=== PATIENT | female | born 1930 | race Caucasian/White ===

== ENCOUNTER → 2017-04-22 | Outpatient (CLI) | payer MEDICARE ==
[~2017-04-22] MED LIST: AML5T; AMLO10TA2 PO; APIX2.5T PO; ASCO-262 PO; CALC-233 PO; CALC625T29 PO; CHOL200059 PO; CLOP75TA69 PO; FRS325T; LUMIGAN; METO200T32 PO; MTP100TCR; NF-ESOM40C PO; TRUSOPT 2%
--- NOTE | 2017-04-22 15:16 | Diagnostic Imaging Report ---
INDICATION: Memory loss. TECHNIQUE: Routine non contrast-enhanced axial images were obtained from the skull base to the vertex. COMPARISON: 07/07/2008. FINDINGS: The ventricles and cortical sulci are diffusely prominent, compatible with age-related volume loss. There are confluent areas of abnormal, low attenuation in the periventricular white matter. This is consistent with chronic small vessel ischemic changes. There is no midline shift or mass-effect. No acute intra-axial hemorrhage is seen. There are no abnormal areas of increased or decreased density to suggest acute hemorrhage or edema. No extra-axial masses or collections are present. The bony calvarium is intact. The visualized paranasal sinuses are unremarkable. The mastoid air cells are clear. IMPRESSION: 1. No acute intracranial abnormality. No CT evidence of mass, acute infarct or intracranial hemorrhage. 2. Chronic small vessel ischemic changes in the deep white matter. Dictated by: Dictated on workstation # [id number]
== END ==
LOC: RAD 14:00
PROVIDERS: ATTEND Nurse Practitioner Family
DX: R41.3 Other amnesia (principal)
CPT/HCPCS: 70450

== ENCOUNTER 2018-01-03 11:05 | Observation (INO) | payer MEDICARE ==
[~2018-01-03] VITALS: Ht 152.4 cm; Wt 52.2 kg
[~2018-01-03 11:05] MED LIST changes: -METO200T32 PO; +METO200T48 PO
--- OUTSIDE RECORDS SUMMARY | 2018-01-03 11:13 | XMS REPORT | Continuity of Care Document ---
Author Author [facility] Organization [facility] Address Unknown Phone Unavailable Allergies Active Description Code Type Severity Reaction Onset Reported/Identified Relationship to Patient Clinical Status Yes isoflurane [id number] Drug Allergy Unknown N/A 04/01/2016 Medications There is no data. 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, BOTH EYES 04/02/2016 DK ROSS MD Ot I10 ESSENTIAL (PRIMARY) HYPERTENSION 04/02/2016 DK ROSS MD Ot I25.10 ATHSCL HEART DISEASE OF [place] CORONARY 04/02/2016 DK ROSS MD Ot I48.0 PAROXYSMAL ATRIAL FIBRILLATION 04/02/2016 DK ROSS MD Ot Z95.5 PRESENCE OF CORONARY ANGIOPLASTY IMPLANT 04/23/2016 YESIKA BOWIE MD Ot I48.2 CHRONIC ATRIAL FIBRILLATION 04/23/2016 YESIKA BOWIE MD Ot R53.1 WEAKNESS 04/23/2016 YESIKA BOWIE MD Ot Z74.2 NEED FOR ASSIST AT HOME NO HOUSE MEMB 04/23/2016 YESIKA BOWIE MD Ot Z79.02 SHELTER (CURRENT) USE OF ANTITHROMBOTI 07/21/2016 MIKALA GALLARDO Ot M54.5 LOW BACK PAIN 07/21/2016 MIKALA GALLARDO BOOT TRIMMER Ot M54.6 PAIN IN THORACIC SPINE 08/11/2016 MIKALA GALLARDO BOOT TRIMMER Ot M54.5 LOW BACK PAIN 08/11/2016 MIKALA GALLARDO BOOT TRIMMER Ot M54.6 PAIN IN THORACIC SPINE 04/22/2017 MIKALA GALLARDO BOOT TRIMMER Ot M54.5 LOW BACK PAIN 04/22/2017 MIKALA GALLARDO BOOT TRIMMER Ot M54.6 PAIN IN THORACIC SPINE 04/26/2017 MIKALA GALLARDO BOOT TRIMMER Ot R41.3 OTHER AMNESIA 04/26/2017 MIKALA GALLARDO BOOT TRIMMER Ot R41.3 OTHER AMNESIA 04/26/2017 MIKALA GALLARDO BOOT TRIMMER Ot R41.3 OTHER AMNESIA 05/16/2017 MIKALA GALLARDO BOOT TRIMMER Ot R41.3 OTHER AMNESIA Procedures There is no data. Results There is no data. Encounters ACCT No. Visit Date/Time Discharge Status Pt. Type Provider Facility Loc./Unit Complaint [id number] 04/22/2017 14:00:00 04/22/2017 23:59:59 CLS Outpatient SAMISIDDHARTHMONIK ALMANZA [facility] RAD MEMORY LOSS [id number] 07/20/2016 12:14:00 07/20/2016 23:59:59 CLS Outpatient SAMISIDDHARTHMONIK WHYTEP [facility] RAD LOW BACK PAIN, THORACIC BACK PAIN,FALL [id number] 03/30/2016 22:55:00 04/02/2016 08:48:00 DIS Inpatient CODY FARRELL, DK López [facility] 4TH CHEST PAIN,PAROXYSMAL A- FIB [id number] 03/14/2016 10:43:00 03/14/2016 13:55:00 DIS Emergency AZEB FARRELL, YESIKA Gallo [facility] ER BEE STING/DIZZINESS/ CONSTIPATION
--- NOTE | 2018-01-03 11:20 | ED Head Injury ---
General Stated Complaint: DIZZY/FALL History of Present Illness Date Seen by Provider: Jan 03, 2018 Time Seen by Provider: 11:15 Initial Comments Patient to the ER by [facility]. Patient called due to fall this morning at 5 AM. Patient reports following this morning while doing laundry in the basement. She is unsure why she fell, she denies any shortness of breath or palpitations prior to fall but reports losing consciousness to waking up to pain to the back of her head and has been dizzy ever since. She struck her left occiput and has a hematoma to this area. Patient reports she is taking. Occurred: this morning Severity: mild Location: occipital Method of Injury: fell Loss of Consciousness: brief (seconds) (patient reports that she lost consciousness prior to falling but is unsure how long she actually out.) Associated Systoms: Denies Symptoms Allergies and Home Medications Allergies Coded Allergies: isoflurane (Verified Allergy, Unknown, 04/01/16) Home Medications Alprazolam 0.25 Mg Tablet, 0.25 MG PO HS, (Reported) Alprazolam 0.25 Mg Tablet, 0.25 MG PO DAILY PRN for ANXIETY, (Reported) Amlodipine Besylate 10 Mg Tablet, 10 MG PO DAILY, (Reported) Apixaban 2.5 Mg Tablet, 2.5 MG PO BID, (Reported) Citalopram Hydrobromide 10 Mg Tablet, 10 MG PO DAILY, (Reported) Clopidogrel Bisulfate 75 Mg Tablet, 75 MG PO DAILY, (Reported) Dorzolamide HCl 10 Ml Drops, 1 DROP OU 0700,1900, (Reported) Latanoprost 2.5 Ml Drops, 1 DROP OU HS, (Reported) Metoprolol Succinate 200 Mg Tab.er.24h, 200 MG PO DAILY, (Reported) Polyethylene Glycol 3350 510 Gm Powder, 17 GM PO DAILY, (Reported) MIXES IN 1/2 CUP OF PRUNE JUICE Propylene Glycol/Peg 400 15 Ml Drops, 1 DROP OS 1000,1200,1400, (Reported) Patient Home Medication List Home Medication List Reviewed: Yes Constitutional: no symptoms reported, see HPI Eyes: No Symptoms Reported, See HPI Ears, Nose, Mouth, Throat: no symptoms reported, see HPI Respiratory: no symptoms reported, see HPI Cardiovascular: no symptoms reported, see HPI Gastrointestinal: no symptoms reported Genitourinary: no symptoms reported, see HPI Musculoskeletal: no symptoms reported, see HPI Skin: no symptoms reported, see HPI Psychiatric/Neurological: No Symptoms Reported, See HPI Endocrine: No Symptoms Reported, See HPI Hematologic/Lymphatic: No Symptoms Reported, See HPI Past Hglcmhq-Wagnqu-Naccxq Hx Seasonal Allergies Seasonal Allergies: No Surgeries Surgeries: Hysterectomy Cardiovascular Cardiac Disorders: Atrial Fibrillation, Coronary Artery Disease, Hypertension Reproductive System Hx Reproductive Disorders: No HEENT 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 Family Medical History Family Medial History: KIDNEY REMOVED 19 MOTHER MIGRAINES 19 MOTHER SKIN CANCER 19 FATHER Physical Exam Vital Signs Vital Signs - First Documented 01/03/18 11:05 Temp 97.2 Pulse 86 Resp 12 B/P (MAP) 145/94 (111) Pulse Ox 100 Capillary Refill : General Appearance: WD/WN, no apparent distress HEENT: PERRL/EOMI, normal ENT inspection Neck: non-tender, full range of motion Cardiovascular: normal peripheral pulses, regular rate, rhythm Respiratory: chest non-tender, lungs clear Gastrointestinal: normal bowel sounds, non tender Back: normal inspection Extremities: normal range of motion, non-tender Psychiatric: alert, oriented x 3 Crainal Nerves: normal hearing, normal speech Motor/Sensory: no motor deficit, no sensory deficit (right) Skin: normal color, warm/dry, ecchymosis (to left. Occiput ) Progress/Results/Core Measures Results/Orders Lab Results Laboratory Tests Test 01/03/18 11:15 01/03/18 13:40 Range/Units White Blood Count 12.5 H 4.3-11.0 10^3/uL Red Blood Count 4.36 4.35-5.85 10^6/uL Hemoglobin 14.0 11.5-16.0 G/DL Hematocrit 41 35-52 % Mean Corpuscular Volume 93 80-99 FL Mean Corpuscular Hemoglobin 32 25-34 PG Mean Corpuscular Hemoglobin Concent 34 32-36 G/DL Red Cell Distribution Width 12.8 10.0-14.5 % Platelet Count 259 130-400 10^3/uL Mean Platelet Volume 10.5 H 7.4-10.4 FL Neutrophils (%) (Auto) 75 42-75 % Lymphocytes (%) (Auto) 16 12-44 % Monocytes (%) (Auto) 9 0-12 % Eosinophils (%) (Auto) 0 0-10 % Basophils (%) (Auto) 0 0-10 % Neutrophils # (Auto) 9.4 H 1.8-7.8 X 10^3 Lymphocytes # (Auto) 1.9 1.0-4.0 X 10^3 Monocytes # (Auto) 1.1 H 0.0-1.0 X 10^3 Eosinophils # (Auto) 0.0 0.0-0.3 10^3/uL Basophils # (Auto) 0.0 0.0-0.1 10^3/uL Sodium Level 137 135-145 MMOL/L Potassium Level 3.7 3.6-5.0 MMOL/L Chloride Level 103 98-107 MMOL/L Carbon Dioxide Level 21 21-32 MMOL/L Anion Gap 13 5-14 MMOL/L Blood Urea Nitrogen 10 7-18 MG/DL Creatinine 0.75 0.60-1.30 MG/DL Estimat Glomerular Filtration Rate > 60 BUN/Creatinine Ratio 13 Glucose Level 137 H 70-105 MG/DL Calcium Level 9.6 8.5-10.1 MG/DL Total Bilirubin 0.6 0.1-1.0 MG/DL Aspartate Amino Transf (AST/SGOT) 56 H 5-34 U/L Alanine Aminotransferase (ALT/SGPT) 21 0-55 U/L Alkaline Phosphatase 62 40-136 U/L Total Protein 7.5 6.4-8.2 GM/DL Albumin 4.4 3.2-4.5 GM/DL Urine Color YELLOW Urine Clarity SLIGHTLY CLOUDY Urine pH 8 5-9 Urine Specific [place] 1.010 L 1.016-1.022 Urine Protein NEGATIVE NEGATIVE Urine Glucose (UA) NEGATIVE NEGATIVE Urine Ketones 1+ H NEGATIVE Urine Nitrite NEGATIVE NEGATIVE Urine Bilirubin NEGATIVE NEGATIVE Urine Urobilinogen NORMAL NORMAL MG/DL Urine Leukocyte Esterase 1+ H NEGATIVE Urine RBC (Auto) 1+ H NEGATIVE Urine RBC 2-5 H /HPF Urine WBC 0-2 /HPF Urine Crystals NONE /LPF Urine Bacteria TRACE /HPF Urine Casts NONE /LPF Urine Mucus NEGATIVE /LPF Urine Culture Indicated NO My Orders Orders - RICO MEJIA APRN Ct Head/Cervical Spine Wo (01/03/18 11:12) Cbc With Automated Diff (01/03/18 11:12) Comprehensive Metabolic Panel (01/03/18 11:12) Ua Culture If Indicated (01/03/18 11:12) Chest 1 View, Ap/Pa Only (01/03/18 11:12) Ekg Tracing (01/03/18 11:12) Continuous Ekg Monitoring (01/03/18 11:12) Saline Lock/Iv-Start (01/03/18 11:12) Ondansetron Injection (Zofran Injectio (01/03/18 12:45) Meclizine Tablet (Antivert Tablet) (01/03/18 13:30) Ekg Tracing (01/03/18 14:18) Promethazine Injection (Phenergan Injec (01/03/18 15:15) Medications Given in ED Current Medications Medications Dose Ordered Sig/Bandar Route Start Time Stop Time Status Last Admin Dose Admin Meclizine HCl 25 mg ONCE ONCE PO 01/03/18 13:30 01/03/18 13:31 DC 01/03/18 13:38 25 MG Ondansetron HCl 4 mg ONCE ONCE IVP 01/03/18 12:45 01/03/18 12:46 DC 01/03/18 12:47 4 MG Vital Signs/I&O Vital Sign - Last 12Hours 01/03/18 01/03/18 11:05 14:55 Temp 97.2 97.2 Pulse 86 72 Resp 12 12 B/P (MAP) 145/94 (111) 140/84 (111) Pulse Ox 100 100 Departure Communication (Admissions) Time/Spoke to Admitting Phy: 14:15 Communication Quite unsteady on her feet and requires assistance of 2 to keep from falling while walking. She does have some persistent nausea. Discussed with Dr. Husain. 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 Bit hesitant to send her home with gait instability. Discussed with Dr. Husain who agrees to admit observation status. She does have a history of paroxysmal A. fib which may have precipitated her syncopal event this morning Impression Impression: Primary Impression: Concussion Additional Impressions: Fall at home Dizziness Gait instability history of paroxysmal A. fib Disposition: ADMITTED INPATIENT Condition: Improved Admissions Decision to Admit Reason: Admit from ER (General) Decision to Admit/Date: Jan 03, 2018 Time/Decision to Admit Time: 14:15 Departure-Patient Inst. Referrals: CALLIE HUSAIN MD (PCP/Family) Primary Care Physician RICO MEJIA APRN 6, 2018 11:20
[2018-01-03 11:25] LABS: BASOPHILS % (AUTO) 0 % (0-10); EOSINOPHILS % (AUTO) 0 % (0-10); HEMATOCRIT 41 % (35-52); LYMPHOCYTES # (AUTO) 1.9 X 10^3 (1.0-4.0); LYMPHOCYTES % (AUTO) 16 % (12-44); MEAN CORPUSCULAR HEMOGLOBIN 32 PG (25-34); MEAN CORPUSCULAR HGB CONC 34 G/DL (32-36); MEAN CORPUSCULAR VOLUME 93 FL (80-99); MEAN PLATELET VOLUME 10.5 FL (7.4-10.4); MONOCYTES # (AUTO) 1.1 X 10^3 (0.0-1.0); MONOCYTES % (AUTO) 9 % (0-12); NEUTROPHILS # (AUTO) 9.4 X 10^3 (1.8-7.8); NEUTROPHILS % (AUTO) 75 % (42-75); PLATELET COUNT 259 10^3/uL (130-400); RED BLOOD COUNT 4.36 10^6/uL (4.35-5.85); RED CELL DISTRIBUTION WIDTH 12.8 % (10.0-14.5); WHITE BLOOD COUNT 12.5 10^3/uL (4.3-11.0)
--- NOTE | 2018-01-03 11:37 | Diagnostic Imaging Report ---
INDICATION: Dizziness. Syncope. COMPARISON: 03/30/2016. FINDINGS: A single frontal view of the chest demonstrates normal heart size and pulmonary vascularity. The lungs are hyperinflated but otherwise clear. No large pleural effusion or pneumothorax is seen. The visualized osseous structures show no acute abnormalities. IMPRESSION: 1. No acute cardiopulmonary process. 2. Background of COPD. Dictated by: Dictated on workstation # [id number]
[2018-01-03 11:45] LABS: ALANINE AMINOTRANSFERASE 21 U/L (0-55); ALBUMIN 4.4 GM/DL (3.2-4.5); ALKALINE PHOSPHATASE 62 U/L (40-136); BILIRUBIN,TOTAL 0.6 MG/DL (0.1-1.0); BUN/CREATININE RATIO 13; CALCIUM 9.6 MG/DL (8.5-10.1); CARBON DIOXIDE 21 MMOL/L (21-32); CHLORIDE 103 MMOL/L (98-107); CREATININE SERUM 0.75 MG/DL (0.60-1.30); GFR ESTIMATED > 60; GLUCOSE 137 MG/DL (70-105); POTASSIUM 3.7 MMOL/L (3.6-5.0); SODIUM 137 MMOL/L (135-145); TOTAL PROTEIN 7.5 GM/DL (6.4-8.2)
[2018-01-03] MEDS ORDERED: IOHEXOL 350 MG/ML 100 ML (OMNIPAQUE 350) VIAL IV ONE (12:00)
[2018-01-03] MEDS ORDERED: NS 250 ML (IVPB) BAG IV ONE (12:00)
[2018-01-03] MEDS ORDERED: ONDANSETRON 4 MG/2 ML (SDV) Z0FRAN ONE (12:40)
[2018-01-03] MEDS ORDERED: ONDANSETRON 4 MG/2 ML (SDV) Z0FRAN IVP ONE (12:45)
--- NOTE | 2018-01-03 13:17 | Diagnostic Imaging Report ---
PROCEDURE: CT head and CT cervical spine without contrast. TECHNIQUE: Multiple contiguous axial images were obtained through the brain and cervical spine without the use of intravenous contrast. Sagittal and coronal reformations through the cervical spine were then performed. INDICATION: Dizziness and fall. COMPARISON: Correlation is made with prior head CT from 04/22/2017. CT BRAIN: There is a large scalp hematoma in the left posterior parietal scalp. No underlying intracranial hemorrhage is seen. The ventricular size and sulcal pattern are appropriate for the patient's age. There is significant periventricular hypodensity noted consistent with senescent change. No midline shift is seen. The cisterns are patent. The visualized paranasal sinuses are clear. IMPRESSION: Large left posterior parietal scalp hematoma. No acute intracranial process is detected. CT CERVICAL SPINE: Curvature of the cervical spine is normal. There is minimal retrolisthesis of C5 on C6. There is significant multilevel degenerative disc disease with disc space narrowing and marginal spurring. The prevertebral tissues are within normal limits. The odontoid is intact. IMPRESSION: No acute bony abnormality is identified. Dictated by: Dictated on workstation # [id number]
[2018-01-03] MEDS ORDERED: MECLIZINE 25 MG (ANTIVERT) TAB PO ONE (13:30)
[2018-01-03 13:55] LABS: BILIRUBIN,URINE NEGATIVE (NEGATIVE); CLARITY,URINE SLIGHTLY CLOUDY; COLOR,URINE YELLOW; GLUCOSE, URINE (UA) NEGATIVE (NEGATIVE); KETONES,URINE 1+ (NEGATIVE); LEUKOCYTE ESTERASE ,URINE 1+ (NEGATIVE); NITRITE,URINE NEGATIVE (NEGATIVE); PH,URINE 8 (5-9); PROTEIN,URINE NEGATIVE (NEGATIVE); UROBILINOGEN,URINE NORMAL (NORMAL)
[2018-01-03 14:02] LABS: BACTERIA,URINE TRACE /HPF; WBC,URINE 0-2 /HPF
--- OUTSIDE RECORDS SUMMARY | 2018-01-03 14:44 | XMS REPORT | Continuity of Care Document ---
Author Author [facility] Organization [facility] Address Unknown Phone Unavailable Allergies Active Description Code Type Severity Reaction Onset Reported/Identified Relationship to Patient Clinical Status Yes isoflurane [id number] Drug Allergy Unknown N/A 04/01/2016 Medications There is no data. 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, BOTH EYES 04/02/2016 DK ROSS MD Ot I10 ESSENTIAL (PRIMARY) HYPERTENSION 04/02/2016 DK ROSS MD Ot I25.10 ATHSCL HEART DISEASE OF [place] CORONARY 04/02/2016 DK ROSS MD Ot I48.0 PAROXYSMAL ATRIAL FIBRILLATION 04/02/2016 DK ROSS MD Ot Z95.5 PRESENCE OF CORONARY ANGIOPLASTY IMPLANT 04/23/2016 YESIKA BOWIE MD Ot I48.2 CHRONIC ATRIAL FIBRILLATION 04/23/2016 YESIKA BOWIE MD Ot R53.1 WEAKNESS 04/23/2016 YESIKA BOWIE MD Ot Z74.2 NEED FOR ASSIST AT HOME NO HOUSE MEMB 04/23/2016 YESIKA BOWIE MD Ot Z79.02 NURSING HOME (CURRENT) USE OF ANTITHROMBOTI 07/21/2016 MIKALA GALLARDO Ot M54.5 LOW BACK PAIN 07/21/2016 MIKALA GALLARDO 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 Ot M54.6 PAIN IN THORACIC SPINE 08/11/2016 MIKALA GALLARDO 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 Ot M54.5 LOW BACK PAIN 08/11/2016 MIKALA GALLARDO 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 Ot M54.6 PAIN IN THORACIC SPINE 04/22/2017 MIKALA GALLARDO 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 Ot M54.5 LOW BACK PAIN 04/22/2017 MIKALA GALLARDO 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 Ot M54.6 PAIN IN THORACIC SPINE 04/26/2017 MIKALA GALLARDO 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 Ot R41.3 OTHER AMNESIA 04/26/2017 MIKALA GALLARDO 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 Ot R41.3 OTHER AMNESIA 04/26/2017 MIKALA GALLARDO 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 Ot R41.3 OTHER AMNESIA 05/16/2017 MIKALA GALLARDO 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 Ot R41.3 OTHER AMNESIA Procedures There is no data. Results Test Result Range Complete blood count (CBC) with automated white blood cell (WBC) differential - 01/03/18 11:15 Blood leukocytes automated count (number/volume) 12.5 10*3/uL 4.3-11.0 Blood erythrocytes automated count (number/volume) 4.36 10*6/uL 4.35-5.85 Venous blood hemoglobin measurement (mass/volume) 14.0 g/dL 11.5-16.0 Blood hematocrit (volume fraction) 41 % 35-52 Automated erythrocyte mean corpuscular volume 93 [foz_us] 80-99 Automated erythrocyte mean corpuscular hemoglobin (mass per erythrocyte) 32 pg 25-34 Automated erythrocyte mean corpuscular hemoglobin concentration measurement ( mass/volume) 34 g/dL 32-36 Automated erythrocyte distribution width ratio 12.8 % 10.0-14.5 Automated blood platelet count (count/volume) 259 10*3/uL 130-400 Automated blood platelet mean volume measurement 10.5 [foz_us] 7.4-10.4 Automated blood neutrophils/100 leukocytes 75 % 42-75 Automated blood lymphocytes/100 leukocytes 16 % 12-44 Blood monocytes/100 leukocytes 9 % 0-12 Automated blood eosinophils/100 leukocytes 0 % 0-10 Automated blood basophils/100 leukocytes 0 % 0-10 Blood neutrophils automated count (number/volume) 9.4 10*3 1.8-7.8 Blood lymphocytes automated count (number/volume) 1.9 10*3 1.0-4.0 Blood monocytes automated count (number/volume) 1.1 10*3 0.0-1.0 Automated eosinophil count 0.0 10*3/uL 0.0-0.3 Automated blood basophil count (count/volume) 0.0 10*3/uL 0.0-0.1 Comprehensive metabolic panel - 01/03/18 11:15 Serum or plasma sodium measurement (moles/volume) 137 mmol/L 135-145 Serum or plasma potassium measurement (moles/volume) 3.7 mmol/L 3.6-5.0 Serum or plasma chloride measurement (moles/volume) 103 mmol/L 98-107 Carbon dioxide 21 mmol/L 21-32 Serum or plasma anion gap determination (moles/volume) 13 mmol/L 5-14 Serum or plasma urea nitrogen measurement (mass/volume) 10 mg/dL 7-18 Serum or plasma creatinine measurement (mass/volume) 0.75 mg/dL 0.60-1.30 Serum or plasma urea nitrogen/creatinine mass ratio 13 NRG Serum or plasma creatinine measurement with calculation of estimated glomerular filtration rate > NRG Serum or plasma glucose measurement (mass/volume) 137 mg/dL 70-105 Serum or plasma calcium measurement (mass/volume) 9.6 mg/dL 8.5-10.1 Serum or plasma total bilirubin measurement (mass/volume) 0.6 mg/dL 0.1-1.0 Serum or plasma alkaline phosphatase measurement (enzymatic activity/volume) 62 U/L 40-136 Serum or plasma aspartate aminotransferase measurement (enzymatic activity/ volume) 56 U/L 5-34 Serum or plasma alanine aminotransferase measurement (enzymatic activity/volume ) 21 U/L 0-55 Serum or plasma protein measurement (mass/volume) 7.5 g/dL 6.4-8.2 Serum or plasma albumin measurement (mass/volume) 4.4 g/dL 3.2-4.5 Complete urinalysis with reflex to culture - 01/03/18 13:40 Urine color determination YELLOW NRG Urine clarity determination SLIGHTLY CLOUDY NRG Urine pH measurement by test strip 8 5-9 Specific gravity of urine by test strip 1.010 1.016- 1.022 Urine protein assay by test strip, semi-quantitative NEGATIVE NEGATIVE Urine glucose detection by automated test strip NEGATIVE NEGATIVE Erythrocytes detection in urine sediment by light microscopy 1+ NEGATIVE Urine ketones detection by automated test strip 1+ NEGATIVE Urine nitrite detection by test strip NEGATIVE NEGATIVE Urine total bilirubin detection by test strip NEGATIVE NEGATIVE Urine urobilinogen measurement by automated test strip (mass/volume) NORMAL NORMAL Urine leukocyte esterase detection by dipstick 1+ NEGATIVE Automated urine sediment erythrocyte count by microscopy (number/high power field) [HPF] NRG Automated urine sediment leukocyte count by microscopy (number/high power field ) [HPF] NRG Bacteria detection in urine sediment by light microscopy TRACE NRG Crystals detection in urine sediment by light microscopy NONE NRG Casts detection in urine sediment by light microscopy NONE NRG Mucus detection in urine sediment by light microscopy NEGATIVE NRG Complete urinalysis with reflex to culture NO NRG Encounters ACCT No. Visit Date/Time Discharge Status Pt. Type Provider Facility Loc./Unit Complaint [id number] 04/22/2017 14:00:00 04/22/2017 23:59:59 CLS Outpatient MIKALA GALLARDO [facility] RAD MEMORY LOSS [id number] 07/20/2016 12:14:00 07/20/2016 23:59:59 CLS Outpatient MIKALA GALLARDO [facility] RAD LOW BACK PAIN, THORACIC BACK PAIN,FALL [id number] 03/30/2016 22:55:00 04/02/2016 08:48:00 DIS Inpatient CODY FARRELL, DK López [facility] 4TH CHEST PAIN,PAROXYSMAL A- FIB [id number] 03/14/2016 10:43:00 03/14/2016 13:55:00 DIS Emergency AZEB FARRELL, YESIKA Gallo [facility] ER BEE STING/DIZZINESS/ CONSTIPATION [id number] 01/03/2018 11:09:00 ACT Emergency RICO MEJIA APRN [facility] ER DIZZY/FALL
[2018-01-03] MEDS ORDERED: PROMETHAZINE INJ 25 MG/ML (PHENERGAN) AMP ONE (15:05)
[2018-01-03] MEDS ORDERED: PROMETHAZINE INJ 25 MG/ML (PHENERGAN) AMP IVP ONE (15:15)
[2018-01-03 16:00] VITALS: BP_SYST 137; BP_DIAS 63; BP_DIAS 64
[2018-01-03] MEDS ORDERED: METO200T48 PO (16:08)
[2018-01-03] MEDS ORDERED: CLOP75TA28 PO (16:08)
[2018-01-03] MEDS ORDERED: CITA10TA7 PO (16:08)
[2018-01-03] MEDS ORDERED: LATA2.5D5 OU (16:08)
[2018-01-03] MEDS ORDERED: [UNRECOGNIZED DRUG - CODE] PO (16:12)
[2018-01-03] MEDS ORDERED: PROP15DR OS (16:12)
[2018-01-03] MEDS ORDERED: APIX2.5T PO (16:12)
[2018-01-03] MEDS ORDERED: ALPR0.254 PO ×2 (16:12)
[2018-01-03] MEDS ORDERED: DORZ10DR2 OU (16:12)
--- NOTE | 2018-01-03 16:17 | Physical Therapy Evaluation ---
PT Evaluation-General Medical Diagnosis Admission Date Jan 03, 2018 at 14:15 Medical Diagnosis: gait instability Onset Date: Jan 03, 2018 Therapy Diagnosis Therapy Diagnosis: impaired mobility, balance, endurance Height/Weight Height (Feet): 5 Height (Inches): 0 Weight (Pounds): 115 Weight (Ounces): 1.0 Precautions Precautions/Isolations: Fall Prevention, Standard Precautions Referral Physician: Blanca Husain MD Reason for Referral: Evaluation/Treatment Medical History Pertinent Medical History: Atrial Fib, CAD, HTN Additional Medical History CAHUILLA, hysterectomy Current History patient fell at home and hit the back of her head Reviewed History: Yes Social History Home: Single Level Current Living Status: Spouse 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 She states her cannot assist her. She states she was not using any assistive device to ambulate. Prior/Core FIM Prior Level of Function Functional [place] Measure 0=Not Assessed/NA 4=Minimal Assistance 1=Total Assistance 5=Supervision or Setup 2=Maximal Assistance 6=Modified [place] 3=Moderate Assistance 7=Complete [place] Bed Mobility: 7 Transfers (B,C,W/C) (FIM): 7 Gait: 7 PT Evaluation-Current Subjective Patient in bed pre tx, agrees to PT, she states she doesn't have any pain but does have dizziness when she gets up. She states she would like to get up and get into a chair. Pt/Family Goals "to have her dizziness go away" Objective Patient Orientation: Person, Place, Situation ROM/Strength ROM Lower Extremities WNL Strength Lower Extremities 4/5 gross bilateral Neuromuscular (Tone, Coordination, Reflexes) Patient has a non-symmetrical smile but does not appear to be neurological, no complaints of numbness on face. No tongue deviation. Sensory Vision: Hearing: Impaired Sensation Right Lower Extremit: Intact Sensation Left Lower Extremity: Intact Transfers Functional [place] Measure 0=Not Assessed/NA 4=Minimal Assistance 1=Total Assistance 5=Supervision or Setup 2=Maximal Assistance 6=Modified [place] 3=Moderate Assistance 7=Complete [place] Transfers (B, C, W/C) (FIM): 4 Scootin Rollin Supine to/from Sit: 5 Sit to/from Stand: 4 bed t/f WC(FIM only if WC use): 4 Patient had difficulty scooting to the edge of the bed but was eventually able to do it without assist. CGA for sit to stand and to go to the chair. Patient sat in recliner. Nurse aware. Gait Mode of Locomotion: Walk Anticipated Mode of Locomotion: Walk Gait (FIM): 1 Distance: 5' Gait Level of Assist: 4 Gait Persons Needed: 1 Gait Assistive Device: Handheld Assist Comments/Gait Description Patient unsteady but no LOB, she did state that she has dizzy right before she sat down. Balance Sitting Static: Normal Sitting Dynamic: Normal Standing Static: Poor Standing Dynamic: Poor Assessment/Needs Patient has impaired mobility, endurance, balance. She is at risk for a fall. Rehab Potential: Fair PT Short Term Goals Short Term Goals Time Frame: Jan 10, 2018 Transfers (B,C,W/C) (FIM): 5 Gait (FIM): 2 Gait Distance Comment: 50' Gait Level of Assist: 4 Gait Assistive Device: FWW, Handheld Assist PT Plan Problem List Problem List: Activity Tolerance, Functional Strength, Safety, Balance, Gait, Transfer, Bed Mobility Treatment/Plan Treatment Plan: Continue Plan of Care Treatment Plan: Bed Mobility, Education, Functional Activity Terrie, Functional Strength, Gait, Safety, Therapeutic Exercise, Transfers Treatment Duration: Jan 10, 2018 Frequency: 6 times per week Estimated Hrs Per Day: .25 hour per day (15-30') Patient and/or Family Agrees t: Yes Safety Risks/Education Patient Education: Gait Training, Transfer Techniques, Correct Positioning, Safety Issues Teaching Recipient: Patient Teaching Methods: Demonstration, Discussion Response to Teaching: Reinforcement Needed Discharge Recommendations Plan Patient will perform bed mobility and transfer training, balance and endurance training, functional strengthening, stair training, gait training, and education , to improve functional mobility and independence at home. Therapy D/C Recommendations: Home w/ Family Support Time/GCodes Time In: 1555 Time Out: 1610 Total Billed Treatment Time: 15 Total Billed Treatment 1 visit EVM 15' G Codes Necessary: Yes PT/OT Therapy GCodes Therapy Functional Limitation: Physical Therapy Test(s)/Tool used to determine: Level of Assistance Scale Functional Limitation-Current Charge Code: MOBCUR Modifier: CJ Functional Limitation-Goal Charge Code: MOBGOAL Modifier: BRENDEN GARCIA PT Jan 03, 2018 16:17
[2018-01-03] MEDS ORDERED: ONDANSETRON 4 MG/2 ML (SDV) Z0FRAN IV PRN (17:15)
[2018-01-03] MEDS ORDERED: MECLIZINE 25 MG (ANTIVERT) TAB PO PRN (17:15)
[2018-01-03] MEDS ORDERED: ACETAMINOPHEN 325 MG TABLET/CAPLET (TYLENOL) PO PRN (17:30)
[2018-01-03] MEDS ORDERED: CATHETER FLUSH 10 ML SYR IV PRN (17:30)
[2018-01-03] MEDS ORDERED: INFLUENZA TRIvalent 2017-2018 0.5 ML/45 MCG SYR IM ONE (17:30)
[2018-01-03 20:00] VITALS: BP 125/60
--- NOTE | 2018-01-03 20:06 | History & Physicial ---
History of Present Illness History of Present Illness Reason for visit/HPI PT IS AN 87 Y/O FEMALE WHO IS KNOWN TO ME FROM CLINIC. SHE PRESENTED TO THE EMERGENCY DEPARTMENT AFTER FALLING AT HOME. SHE IS BLIND AND HER IS BLIND AND HE WAS UNABLE TO HELP HER. SHE STATES THAT SHE GOT DIZZY WHEN SHE WAS BENDING OVER TO DRINKING WATER TECHNICIAN LAUNDRY FROM THE BASKET. Date of Admission Jan 03, 2018 at 14:15 Time Seen by Provider: 20:00 I consulted on this patient on 01/03/18 20:05 Attending Physician Callie Husain MD Admitting Physician Callie Husain MD Consult Allergies and Home Medications Allergies Coded Allergies: isoflurane (Verified Allergy, Unknown, 04/01/16) Home Medications Alprazolam 0.25 Mg Tablet, 0.25 MG PO HS, (Reported) Alprazolam 0.25 Mg Tablet, 0.25 MG PO DAILY PRN for ANXIETY, (Reported) Amlodipine Besylate 10 Mg Tablet, 10 MG PO DAILY, (Reported) Apixaban 2.5 Mg Tablet, 2.5 MG PO BID, (Reported) Azithromycin 250 Mg Tablet, 250 MG PO DAILY Prescribed by: CALLIE HUSAIN on 01/09/18 1205 Cefdinir 300 Mg Capsule, 300 MG PO BID Prescribed by: CALLIE HUSAIN on 01/09/18 1205 Citalopram Hydrobromide 10 Mg Tablet, 10 MG PO DAILY, (Reported) Clopidogrel Bisulfate 75 Mg Tablet, 75 MG PO DAILY, (Reported) Dorzolamide HCl 10 Ml Drops, 1 DROP OU 0700,1900, (Reported) Latanoprost 2.5 Ml Drops, 1 DROP OU HS, (Reported) Metoprolol Succinate 200 Mg Tab.er.24h, 200 MG PO DAILY, (Reported) Polyethylene Glycol 3350 510 Gm Powder, 17 GM PO DAILY, (Reported) MIXES IN 1/2 CUP OF PRUNE JUICE Propylene Glycol/Peg 400 15 Ml Drops, 1 DROP OS 1000,1200,1400, (Reported) Patient Home Medication List Home Medication List Reviewed: Yes Past Awzkcls-Gadmvf-Rinecg Hx Patient Social History Marrital Status: Living Status: LIVES AT HOME WITH BLIND SPOUSE Employed/Student: retired Alcohol Use: Occasionally Uses Recreational Drug Use: No Smoking Status: Never a Smoker Physical Abuse Screen: No Sexual Abuse: No Recent Foreign Travel: No Contact w/other who traveled: No Recent Hopitalizations: No (PARTIAL HYSTERECTOMY, TONSILECTOMY, FUNDOPLICATION , CARPAL TUNNEL ) Recent Infectious Disease Expo: No Seasonal Allergies Seasonal Allergies: No Surgeries Yes (COLONOSCOPY, EGD, HEART CATH.,) Hysterectomy Respiratory No Cardiovascular Yes Atrial Fibrillation, Coronary Artery Disease, Hypertension Neurological No Reproductive System Hx Reproductive Disorders: No Gastrointestinal No Endocrine History of Endocrine Disorders: No HEENT 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 Cancer No Psychosocial History of Psychiatric Problem: No Integumentary History of Skin or Integumenta: No Blood Transfusions History of Blood Disorders: No Reviewed Nursing Assessment Reviewed/Agree w Nursing PMH: Yes Family Medical History Significant Family History: Cancer Family Hx: KIDNEY REMOVED 19 MOTHER MIGRAINES 19 MOTHER SKIN CANCER 19 FATHER Constitutional: No chills, No diaphoresis, dizziness (ITTENT), No fever, No malaise EENTM: vision loss, No hoarseness, No mouth pain Respiratory: No cough, No dyspnea on exertion Cardiovascular: No chest pain Gastrointestinal: No abdominal pain, No constipation Genitourinary: no symptoms reported Musculoskeletal: muscle weakness Skin: no symptoms reported Psychiatric/Neurological: Anxiety All Other Systems Reviewed Negative Unless Noted: Yes Physical Exam Vital Signs Vital Signs - First Documented 01/03/18 01/03/18 11:05 16:00 Temp 97.2 Pulse 86 Resp 12 B/P (MAP) 145/94 (111) Pulse Ox 100 O2 Delivery Room Air Capillary Refill : Less Than 3 Seconds General Appearance: No Apparent Distress, WD/WN HEENT: Pharynx Normal Neck: Full Range of Motion, Supple Respiratory: Chest Non Tender, Lungs Clear, Normal Breath Sounds, No Accessory Muscle Use Cardiovascular: Regular Rate, Rhythm Gastrointestinal: Normal Bowel Sounds, Non Tender, Soft Rectal: Deferred Extremity: Normal Capillary Refill, No Pedal Edema Neurologic/Psychiatric: Alert, Oriented x3, Normal Mood/Affect Skin: Warm/Dry Lymphatic: No Adenopathy Assessment/Plan Assessment and Plan FALL AT HOME DIZZINESS BLINDNESS CONSTIPATION ANXIETY HYPERTENSION FALL AT HOME DUE TO DIZZINESS - SUSPECT ORTHOSTASIS - WILL INITIATE PHYSICAL THERAPY. BLINDNESS - DISCUSSED WITH THE PT - IT WOULD BE BEST FOR THE PT TO GO TO ASSISTED LIVING OR THE [facility] - SHE STATES THAT SHE IS NOT INTERESTED AND THAT SHE TAKES CARE OF HERSELF AND HER . CONSTIPATION - RESUME MIRALAX ANXIETY - RESUME HOME MEDICATIONS. HYPERTENSION - RESUME HOME MEDICATIONS Problems: Admission Diagnosis FALL AT HOME DIZZINESS BLINDNESS CONSTIPATION ANXIETY HYPERTENSION Admission Status: Observation Clinical Quality Measures DVT/VTE Risk/Contraindication: Risk Factor Score Per Nursin RFS Level Per Nursing on Admit: 2=Moderate CALLIE HUSAIN MD Jan 03, 2018 20:06
[2018-01-03] MEDS ORDERED: ALPRAZolam 0.25 MG (XANAX) TAB PO PRN (20:15)
[2018-01-03] MEDS ORDERED: PATIENT MAY USE OWN MEDS, ALL MC SCH (20:15)
[2018-01-03] MEDS ORDERED: ALPRAZolam 0.25 MG (XANAX) TAB PO SCH (21:00)
[2018-01-03] MEDS ORDERED: POLYETHYLENE GLYCOL 17 GM (MIRALAX) PACK PO SCH (21:00)
[2018-01-03] MEDS ORDERED: LATANOPROST 0.005% (XALATAN) OPHTH SOLN 2.5 ML OU SCH (21:00)
[2018-01-03] MEDS: DORZOLAMIDE 2% 10 ML BTL (TRUSOPT) OU SCH (21:37)
[2018-01-03] MEDS: APIXABAN 2.5 MG (ELIQUIS) TABLET PO SCH (21:39)
[2018-01-03] MEDS: CATHETER FLUSH 10 ML SYR IV SCH (22:03)
[2018-01-04] VITALS: BP 132/58
[2018-01-04 04:00] VITALS: BP 123/56
[2018-01-04] MEDS: CATHETER FLUSH 10 ML SYR IV SCH (06:08)
[2018-01-04 06:56] LABS: HEMOGLOBIN 14.4 G/DL (11.5-16.0); MEAN PLATELET VOLUME 10.4 FL (7.4-10.4); RED BLOOD COUNT 4.48 10^6/uL (4.35-5.85); RED CELL DISTRIBUTION WIDTH 13.1 % (10.0-14.5); WHITE BLOOD COUNT 7.3 10^3/uL (4.3-11.0)
[2018-01-04] MEDS: DORZOLAMIDE 2% 10 ML BTL (TRUSOPT) OU SCH (06:59)
[2018-01-04 07:20] LABS: ALANINE AMINOTRANSFERASE 22 U/L (0-55); ALBUMIN 4.5 GM/DL (3.2-4.5); ALKALINE PHOSPHATASE 66 U/L (40-136); BILIRUBIN,TOTAL 0.9 MG/DL (0.1-1.0); BUN/CREATININE RATIO 12; CARBON DIOXIDE 24 MMOL/L (21-32); CHLORIDE 103 MMOL/L (98-107); CREATININE SERUM 0.85 MG/DL (0.60-1.30); GFR ESTIMATED > 60; GLUCOSE 99 MG/DL (70-105); POTASSIUM 3.5 MMOL/L (3.6-5.0); SODIUM 138 MMOL/L (135-145); TOTAL PROTEIN 7.7 GM/DL (6.4-8.2)
[2018-01-04 08:00] VITALS: BP 129/76
[2018-01-04] MEDS: APIXABAN 2.5 MG (ELIQUIS) TABLET PO SCH (08:56)
[2018-01-04] MEDS ORDERED: Metoprolol Succinate 200 MG PO SCH (09:00)
[2018-01-04] MEDS ORDERED: CLOPIDOGREL 75 MG (PLAVIX) TABLET PO SCH (09:00)
[2018-01-04] MEDS ORDERED: amLODIPine 10 MG (NORVASC) TAB PO SCH (09:00)
--- NOTE | 2018-01-04 09:44 | D/C HH Face to Face Order ---
D/C Face to Face Orders Instructions for Patient Patient Instructions/FollowUp: FOLLOW UP WITH [facility] IN [place] WEEK FROM [place] Physician to follow Patient: LORAINE Discharge Diet for Home: Regular Diet Patient Data-Allergies,Ht & Wt Patient Allergies: Coded Allergies: isoflurane (Verified Allergy, Unknown, 04/01/16) Height (Feet): 5 Height (Inches): 0.00 Weight (Pounds): 115 Weight (Ounces): 0.0 Home Health Need/Face to Face Date of Face to Face: Jan 04, 2018 Clinical Findings: Generalized weakness and fatigue, Instability, Muscle weakness, Other-list in note (BLIND) I have seen Pt [id number]: Yes Discharged To: Home Diagnosis/Conditions: BLINDNESS, FALLING AT HOME, AFIB, HTN, GENERALIZED WEAKNESS Problems/Diagnosis/Condition: Patient is Homebound due to: Taylor fall risk due to instabilty, Muscle weakness Homebound Status Due to the above stated illness, injury or surgical procedure (medical condition or diagnosis) and associated clinical findings, the patient is homebound because of his/her inability to leave home except with aid of a supportive device and/or person AND leaving the home requires a considerable and taxing effort or is medically contraindicated. Pt req the following assistanc: Cane Home Health Nursing Orders Home Health Services Order: Nursing Services, Ict Business Development Manager-Evaluate & Treat, Physical Therapy-Evaluate & Treat Home Health Infusion Therapy Line Start Date: Jan 03, 2018 Line Type: Saline Lock Site Location: Antecubital Therapy Orders Therapy Orders: Physical Therapy, PT to assess for OT Therapy Specific Orders: Eval assistive deivces, Teach enviro modifications/ safety, Gait training, Restore ROM Certify Stmt I certify that this patient is under my care and that I, a nurse practitioner or a physician; a promotional advertising assistant working with me, had a face to face encounter that - meets the physician face to face encounter requirements with this patient as dated. Medication List: Active Scripts Active Reported Systane 0.3-0.4% Eye Drops (Propylene Glycol/Peg 400) 15 Ml Drops 1 Drop OS 1000 ,1200,1400 Gentlelax (Polyethylene Glycol 3350) 510 Gm Powder 17 Gm PO DAILY MIXES IN 1/2 CUP OF PRUNE JUICE Eliquis (Apixaban) 2.5 Mg Tablet 2.5 Mg PO BID Alprazolam 0.25 Mg Tablet 0.25 Mg PO DAILY PRN Alprazolam 0.25 Mg Tablet 0.25 Mg PO HS Dorzolamide HCl 10 Ml Drops 1 Drop OU 0700,1900 Latanoprost 2.5 Ml Drops 1 Drop OU HS Metoprolol Succinate 200 Mg Tab.er.24h 200 Mg PO DAILY Citalopram HBr (Citalopram Hydrobromide) 10 Mg Tablet 10 Mg PO DAILY Clopidogrel (Clopidogrel Bisulfate) 75 Mg Tablet 75 Mg PO DAILY Amlodipine Besylate 10 Mg Tablet 10 Mg PO DAILY Lab results: Laboratory Tests Test 01/03/18 11:15 01/03/18 13:40 01/04/18 06:38 Range/Units White Blood Count 12.5 H 7.3 4.3-11.0 10^3/uL Red Blood Count 4.36 4.48 4.35-5.85 10^6/uL Hemoglobin 14.0 14.4 11.5-16.0 G/DL Hematocrit 41 43 35-52 % Mean Corpuscular Volume 93 95 80-99 FL Mean Corpuscular Hemoglobin 32 32 25-34 PG Mean Corpuscular Hemoglobin Concent 34 34 32-36 G/DL Red Cell Distribution Width 12.8 13.1 10.0-14.5 % Platelet Count 259 251 130-400 10^3/uL Mean Platelet Volume 10.5 H 10.4 7.4-10.4 FL Neutrophils (%) (Auto) 75 42-75 % Lymphocytes (%) (Auto) 16 12-44 % Monocytes (%) (Auto) 9 0-12 % Eosinophils (%) (Auto) 0 0-10 % Basophils (%) (Auto) 0 0-10 % Neutrophils # (Auto) 9.4 H 1.8-7.8 X 10^3 Lymphocytes # (Auto) 1.9 1.0-4.0 X 10^3 Monocytes # (Auto) 1.1 H 0.0-1.0 X 10^3 Eosinophils # (Auto) 0.0 0.0-0.3 10^3/uL Basophils # (Auto) 0.0 0.0-0.1 10^3/uL Sodium Level 137 138 135-145 MMOL/L Potassium Level 3.7 3.5 L 3.6-5.0 MMOL/L Chloride Level 103 103 98-107 MMOL/L Carbon Dioxide Level 21 24 21-32 MMOL/L Anion Gap 13 11 5-14 MMOL/L Blood Urea Nitrogen 10 10 7-18 MG/DL Creatinine 0.75 0.85 0.60-1.30 MG/DL Estimat Glomerular Filtration Rate > 60 > 60 BUN/Creatinine Ratio 13 12 Glucose Level 137 H 99 70-105 MG/DL Calcium Level 9.6 10.0 8.5-10.1 MG/DL Total Bilirubin 0.6 0.9 0.1-1.0 MG/DL Aspartate Amino Transf (AST/SGOT) 56 H 54 H 5-34 U/L Alanine Aminotransferase (ALT/SGPT) 21 22 0-55 U/L Alkaline Phosphatase 62 66 40-136 U/L Total Protein 7.5 7.7 6.4-8.2 GM/DL Albumin 4.4 4.5 3.2-4.5 GM/DL Urine Color YELLOW Urine Clarity SLIGHTLY CLOUDY Urine pH 8 5-9 Urine Specific [place] 1.010 L 1.016-1.022 Urine Protein NEGATIVE NEGATIVE Urine Glucose (UA) NEGATIVE NEGATIVE Urine Ketones 1+ H NEGATIVE Urine Nitrite NEGATIVE NEGATIVE Urine Bilirubin NEGATIVE NEGATIVE Urine Urobilinogen NORMAL NORMAL MG/DL Urine Leukocyte Esterase 1+ H NEGATIVE Urine RBC (Auto) 1+ H NEGATIVE Urine RBC 2-5 H /HPF Urine WBC 0-2 /HPF Urine Crystals NONE /LPF Urine Bacteria TRACE /HPF Urine Casts NONE /LPF Urine Mucus NEGATIVE /LPF Urine Culture Indicated NO Thyroid Stimulating Hormone (TSH) 1.41 0.35-4.94 UIU/ML My orders: Orders - CALLIE BARON MD Promethazine Injection (Phenergan Injec (01/03/18 15:05) General/Regular (01/03/18 Lunch) Intake & Output-Accurate (Ord) (01/03/18 15:33) Up With Assistance As Tolerate (01/03/18 15:33) Code/Resuscitation (01/03/18 15:33) Patient/Family Fall-Prevention .on admission (01/03/18 15:38) Physical Therapy [place]der (01/03/18 15:38) Patient Visit (01/03/18 ) Pt Eval Moderate Complexity (01/03/18 ) Pt Mobility Current Status (01/03/18 ) Pt Mobility Goal Status (01/03/18 ) Ambulate TID (01/03/18 16:43) Sequential Compression Device 08,20 (01/03/18 16:43) Dvt/Vte Risk - Notifiy Physici 08 (01/03/18 16:43) Ondansetron Injection (Zofran Injectio (01/03/18 17:15) Meclizine Tablet (Antivert Tablet) (01/03/18 17:15) Acetaminophen Tablet/Caplet (Tylenol T (01/03/18 17:30) Sodium Chloride Flush (Catheter Flush Sy (01/03/18 22:00) Sodium Chloride Flush (Catheter Flush Sy (01/03/18 17:30) Influenza Trivalent 3033-4937 (Afluria (01/03/18 17:30) Alprazolam Tablet (Xanax Tablet) (01/03/18 20:15) Alprazolam Tablet (Xanax Tablet) (01/03/18 21:00) Amlodipine Tablet (Norvasc Tablet) (01/04/18 09:00) Apixaban Tablet (Eliquis Tablet) (01/03/18 21:00) Citalopram Tablet (Celexa Tablet) (01/04/18 09:00) Clopidogrel Tablet (Plavix Tablet) (01/04/18 09:00) Dorzolamide 2% Ophthalmic Soln (Trusopt (01/03/18 20:15) Latanoprost 0.005% Ophth Soln (Xalatan 0 (01/03/18 21:00) (Nf) Metoprolol Succinate (01/04/18 09:00) Polyethylene Glycol Powder Pkt (Miralax (01/03/18 21:00) Patient May Use Own Meds, All (Patient M (01/03/18 20:15) Cbc No Diff (01/04/18 05:00) Comprehensive Metabolic Panel (01/04/18 05:00) Thyroid Stimulating Hormone (01/04/18 05:00) Admission Order(Inpt,Obs,Sdc) (01/03/18 20:06) Iv/Invasive Line Insertion .on IV start (01/03/18 20:06) Activity (01/03/18 ) Intake & Output 06,14,22 (01/03/18 20:06) Vital Signs: Every 4 Hours (Or (01/03/18 20:06) Sequential Compression Device 08,20 (01/03/18 20:06) Initiate Admission Nursing Pro .admission (01/03/18 20:06) Latanoprost 0.005% Ophth Soln (Xalatan 0 (01/04/18 21:00) Social Service (01/04/18 08:38) Carboxymethylcell Ophth Soln (Refresh Pl (01/04/18 10:00) Attending Discharge (01/04/18 09:41) D/C With Home Health Services (01/04/18 09:41) CALLIE BARON MD Jan 04, 2018 09:44
--- NOTE | 2018-01-04 09:45 | Discharge Summary ---
Diagnosis/Chief Complaint Date of Admission Jan 03, 2018 at 14:15 Date of Discharge Discharge Date: Jan 04, 2018 Discharge Time: 1100 Discharge Summary Discharge Physical Examination Allergies: Coded Allergies: isoflurane (Verified Allergy, Unknown, 04/01/16) Vitals & I&Os Vital Signs Date Time Temp Pulse Resp B/P (MAP) Pulse Ox O2 Delivery O2 Flow Rate FiO2 01/04/18 04:00 98.1 74 16 123/56 (78) 98 Room Air Hospital Course Pending Labs Laboratory Tests 01/04/18 06:38: White Blood Count 7.3, Red Blood Count 4.48, Hemoglobin 14.4, Hematocrit 43, Mean Corpuscular Volume 95, Mean Corpuscular Hemoglobin 32, Mean Corpuscular Hemoglobin Concent 34, Red Cell Distribution Width 13.1, Platelet Count 251, Mean Platelet Volume 10.4, Sodium Level 138, Potassium Level 3.5, Chloride Level 103, Carbon Dioxide Level 24, Anion Gap 11, Blood Urea Nitrogen 10, Creatinine 0.85, Estimat Glomerular Filtration Rate > 60, BUN/Creatinine Ratio 12, Glucose Level 99, Calcium Level 10.0, Total Bilirubin 0.9, Aspartate Amino Transf (AST/SGOT) 54, Alanine Aminotransferase (ALT/SGPT) 22, Alkaline Phosphatase 66, Total Protein 7.7, Albumin 4.5, Thyroid Stimulating Hormone (TSH ) 1.41 Discharge Instructions to patient/family Please see electronic discharge instructions given to patient. Discharge Medications Reviewed and agree with Discharge Medication list on patient's Discharge Instruction sheet Clinical Quality Measures DVT/VTE Risk/Contraindication: Risk Factor Score Per Nursin RFS Level Per Nursing on Admit: 2=Moderate CALLIE BARON MD Jan 04, 2018 09:45
[2018-01-04] MEDS ORDERED: ARTIFICAL TEARS 0.4 ML UNIT DOSE (REFRESH PLUS) OP SCH (10:00)
--- NOTE | 2018-01-04 10:11 | Physical Therapy Daily Note ---
PT Daily Note-Current Subjective Patient is very agreeable to participate with PT. Pain Numeric Pain Scale: 0-No Pain Location: No Pain Reported Mental Status Patient Orientation: Normal For Age Transfers Functional [place] Measure 0=Not Assessed/NA 4=Minimal Assistance 1=Total Assistance 5=Supervision or Setup 2=Maximal Assistance 6=Modified [place] 3=Moderate Assistance 7=Complete IndependenceIRFPAI Quality Coding Scale 6 Independent with activity with or without an assistive device 5 Patient requires set up or clean up by helper. Patient completes activity by themselves 4 Supervision or touching assist (CGA). [place] provide cues , steadying assist 3 The helper provides less than half the effort to complete the activity 2 The helper provides more than half the effort to complete the activity 1 Dependent. The helper does all the effort to complete an activity 7 Patient refused to complete or attempt activity 9 The patient did not perform the activity before the current illness or injury 88 Not attempted due to Medical conditions or safety concerns Transfers (B, C, W/C) (FIM): 6 Scootin Rollin Supine to/from Sit: 6 Sit to/from Stand: 6 Bed to/from Chair: 6 Gait Training Gait (FIM): 5 Distance (FIM): 3=150 ft Distance: 400' Gait Level of Assist: 5 Gait Assistive Device: None PT had patient ambulate with FWW and patient requested to not use it. From a PT standpoint, patient would benefit from FWW use at home for safety, however, patient declined this. SW/RN present to witness. Patient presents with a shuffle gait sequence. Stair Training Stair Training: Handrails/: 2 handrails Stairs (FIM): 5 #of Steps: 4 Stairs: Pattern: Step to Level of Assist: 5 Assessment Patient to dismiss to home with home health intervention. PT recommends FWW for ambulation at home for safety. Patient declined this intervention. PT Short Term Goals Short Term Goals Time Frame: Jan 10, 2018 Transfers (B,C,W/C) (FIM): 5 Gait (FIM): 2 Gait Distance Comment: 50' Gait Level of Assist: 4 Gait Assistive Device: FWW, Handheld Assist PT Plan Treatment/Plan Treatment Plan: Discontinue PT, goals met Treatment Plan: Bed Mobility, Education, Functional Activity Terrie, Functional Strength, Gait, Safety, Therapeutic Exercise, Transfers Treatment Duration: Jan 10, 2018 Frequency: 6 times per week Estimated Hrs Per Day: .25 hour per day (15-30') Patient and/or Family Agrees t: Yes Time/GCodes Time In: 941 Time Out: 957 Total Billed Treatment Time: 16 Total Billed Treatment 1 visit FA 16 min PT/OT Therapy GCodes Therapy Functional Limitation: Physical Therapy Test(s)/Tool used to determine: Level of Assistance Scale Functional Limitation-Current Charge Code: MOBCUR Modifier: CI Functional Limitation-Goal Charge Code: DARLENE Modifier: CI Functional Limitation-D/C Charge Codes: MOBDC Modifier: CI PARK SHANE PT Jan 04, 2018 10:11
[2018-01-04 12:53] VITALS: BP 129/76
[2018-01-04] MEDS ORDERED: LATANOPROST 0.005% (XALATAN) OPHTH SOLN 2.5 ML OU SCH (21:00)
== END 2018-01-04 09:41 | disposition home health service (06) ==
LOC: EDUNIT# 11:08 → ER 11:09 → UNDOADMOB 14:15 → 4TH 14:15 → UNDODISOB 01-04 11:35
PROVIDERS: ADMIT Family Medicine; ATTEND Family Medicine
DX: S06.0X1A Concussion with loss of consciousness of 30 minutes or less, initial encounter (principal); S00.03XA Contusion of scalp, initial encounter; R42 Dizziness and giddiness; R26.9 Unspecified abnormalities of gait and mobility; M50.30 Other cervical disc degeneration, unspecified cervical region; I48.0 Paroxysmal atrial fibrillation; I25.10 Atherosclerotic heart disease of native coronary artery without angina pectoris; I10 Essential (primary) hypertension; Z79.899 Other long term (current) drug therapy; W18.00XA Striking against unspecified object with subsequent fall, initial encounter; Y92.018 Other place in single-family (private) house as the place of occurrence of the external cause
CPT/HCPCS: 36415; 70450; 71045; 72125; 80053; 81000; 84443; 85025; 85027; 93005; 96374; 96375; G0378

== ENCOUNTER 2018-01-05 12:11 | Observation (INO) | payer MEDICARE ==
[~2018-01-05] VITALS: Ht 157.5 cm; Wt 54.4 kg
[~2018-01-05 12:11] MED LIST changes: +ALPR0.254 PO; +CITA10TA7 PO; +CLOP75TA28 PO; +DORZ10DR2 OU; +LATA2.5D5 OU; +PROP15DR OS; +[UNRECOGNIZED DRUG - CODE] PO
--- NOTE | 2018-01-05 12:23 | ED Fall/Injury ---
General Chief Complaint: Trauma-Non Activation Stated Complaint: FALL/NECK PAIN Source: patient, family, EMS Exam Limitations: no limitations (RICO MEJIA APRN) History of Present Illness Date Seen by Provider: Jan 05, 2018 Time Seen by Provider: 12:20 Initial Comments To ER per EMS from home with reports of a fall. Patient was admitted to the hospital on January 03 after she fell at home striking her head and had a large scalp hematoma without evidence of intracranial hemorrhage. She was admitted due to the dizziness persisted. She was discharged yesterday. She states that upon discharge yesterday she went home and fell into the kitchen stove striking the left side of her chest. She has persistent pain now unless side of her chest wall worse with deep breathing. Also sustained a skin tear to dorsal aspect left forearm. She had no additional falls yesterday after that. This morning, while in the basement again she fell again. She now has neck pain, bruising over the bridge of her nose and a bruise behind the right ear. Occurred: just prior to arrival Severity: moderate Associated Symptoms (Fall): Neck Pain (RICO MEIJA APRN) Allergies and Home Medications Allergies Coded Allergies: isoflurane (Verified Allergy, Unknown, 04/01/16) Home Medications Alprazolam 0.25 Mg Tablet, 0.25 MG PO HS, (Reported) Alprazolam 0.25 Mg Tablet, 0.25 MG PO DAILY PRN for ANXIETY, (Reported) Amlodipine Besylate 10 Mg Tablet, 10 MG PO DAILY, (Reported) Apixaban 2.5 Mg Tablet, 2.5 MG PO BID, (Reported) Citalopram Hydrobromide 10 Mg Tablet, 10 MG PO DAILY, (Reported) Clopidogrel Bisulfate 75 Mg Tablet, 75 MG PO DAILY, (Reported) Dorzolamide HCl 10 Ml Drops, 1 DROP OU 0700,1900, (Reported) Latanoprost 2.5 Ml Drops, 1 DROP OU HS, (Reported) Metoprolol Succinate 200 Mg Tab.er.24h, 200 MG PO DAILY, (Reported) Polyethylene Glycol 3350 510 Gm Powder, 17 GM PO DAILY, (Reported) MIXES IN 1/2 CUP OF PRUNE JUICE Propylene Glycol/Peg 400 15 Ml Drops, 1 DROP OS 1000,1200,1400, (Reported) Patient Home Medication List Home Medication List Reviewed: Yes (RICO MEJIA APRN) Constitutional: see HPI Eyes: No Symptoms Reported Ears, Nose, Mouth, Throat: no symptoms reported Respiratory: no symptoms reported Cardiovascular: no symptoms reported Genitourinary: no symptoms reported Musculoskeletal: no symptoms reported Skin: no symptoms reported Psychiatric/Neurological: Headache (RICO MEJIA APRN) Past Dkuoigv-Rujjsq-Fnnesl Hx Patient Social History Recent Hopitalizations: No (PARTIAL HYSTERECTOMY, TONSILECTOMY, FUNDOPLICATION , CARPAL TUNNEL ) (RICO MEJIA APRN) Seasonal Allergies Seasonal Allergies: No (RICO MEJIA APRN) Surgeries History of Surgeries: Yes (COLONOSCOPY, EGD, HEART CATH.,) Surgeries: Hysterectomy (RICO MEJIA APRN) Respiratory History of Respiratory Disorde: No (RICO MEJIA APRN) Cardiovascular History of Cardiac Disorders: Yes Cardiac Disorders: Atrial Fibrillation, Coronary Artery Disease, Hypertension (RICO MEJIA APRN) Neurological History of Neurological Disord: No (RICO MEJIA APRN) Reproductive System Hx Reproductive Disorders: No (RICO MEJIA APRN) Gastrointestinal History of Gastrointestinal Di: No (RICO MEJIA APRN) Endocrine History of Endocrine Disorders: No (RICO MEJIA APRN) HEENT 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 (RICO MEJIA APRN) Cancer History of Cancer: No (RICO MEJIA APRN) Psychosocial History of Psychiatric Problem: No (RICO MEJIA APRN) Integumentary History of Skin or Integumenta: No (RICO MEJIA APRN) Blood Transfusions History of Blood Disorders: No (RICO MEJIA APRN) Family Medical History Family Medial History: KIDNEY REMOVED 19 MOTHER MIGRAINES 19 MOTHER SKIN CANCER 19 FATHER (RICO MEJIA APRN) Family Medial History: KIDNEY REMOVED 19 MOTHER MIGRAINES 19 MOTHER SKIN CANCER 19 FATHER (DK ROSS MD) Physical Exam Vital Signs Vital Signs - First Documented 01/05/18 12:15 Temp 98.2 Pulse 91 Resp 20 B/P (MAP) 140/67 (91) Pulse Ox 96 O2 Delivery Room Air (DK ROSS MD) Vital Signs Capillary Refill : (RICO MEJIA APRN) General Appearance: WD/WN, no apparent distress HEENT: PERRL/EOMI, normal ENT inspection, other (bruising over the bridge of the nose, bruising behind the right ear) Neck: non-tender, full range of motion, other (tender to palpation she is in a cervical collar) Respiratory: no respiratory distress, no accessory muscle use Gastrointestinal: normal bowel sounds, soft Extremities: normal range of motion, non-tender Neurologic/Psychiatric: alert, normal mood/affect, oriented x 3 Skin: normal color, warm/dry, other (skin tear dorsal aspect left forearm) ( RICO MEJIA APRN) Jack Coma Score Best Eye Response: (4) Open Spontaneously Best Verbal Response: (5) Oriented Best Motor Response: (6) Obeys Commands [place] Total: 15 (RICO MEJIA APRN) Progress/Results/Core Measures Results/Orders Vital Signs/I&O Vital Sign - Last 12Hours 01/05/18 12:15 Temp 98.2 Pulse 91 Resp 20 B/P (MAP) 140/67 (91) Pulse Ox 96 O2 Delivery Room Air (DK ROSS MD) Departure Communication (Admissions) Progress Notes 1311-radiology called to report a nondisplaced C2 fracture with components of both type II and type III. No intercranial hemorrhage. Patient is neurologically intact. Discussed the case with Dr. Burch reconditioning associate for orthopedic spine surgery. Recommends hard collar and DC to home. However due to the patient 's repeated falling she'll need to be admitted. 1400- Care turned over to Dr Ross. Orders for admission written by him, consults ordered by him. (RICO MEJIA APRN) Progress Notes 1330 the patient whom I have known for nearly 40 years asked that I call her at home to inform him of what was transpiring here. He is totally blind and quite hard of hearing. 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 The dilemma is as we are hoping to place her in the inpatient rehabilitation unit that he will be some sort of attention as he is not capable of performing alone. I have spoken to Juhi Valdovinos of director social welfare and she will take on the task. (DK ROSS MD) Impression Impression: Primary Impression: persistent dizziness Additional Impressions: Concussion Nondisplaced odontoid fracture with type II morphology Disposition: ADMITTED INPATIENT Condition: Stable Departure-Patient Inst. Referrals: CALLIE BARON MD (PCP/Family) Primary Care Physician RICO MEJIA APRN Jan 05, 2018 12:23 DK ROSS MD Jan 05, 2018 13:29
--- OUTSIDE RECORDS SUMMARY | 2018-01-05 12:59 | XMS REPORT | Continuity of Care Document ---
Author Author [facility] Organization [facility] Address Unknown Phone Unavailable Allergies Active Description Code Type Severity Reaction Onset Reported/Identified Relationship to Patient Clinical Status Yes isoflurane [id number] Drug Allergy Unknown N/A 04/01/2016 Medications There is no data. Problems Date Dx Coded Attending Type Code Diagnosis Diagnosed By 03/14/2016 YESIKA BOWIE MD Ot I48.2 CHRONIC ATRIAL FIBRILLATION 03/14/2016 YESIKA BOWIE MD Ot R53.1 WEAKNESS 03/14/2016 YESIKA BOWIE MD Ot Z74.2 NEED FOR ASSIST AT HOME NO HOUSE MEMB 03/14/2016 YESIKA BOWIE MD Ot Z79.02 HALF-WAY (CURRENT) USE OF ANTITHROMBOTI 04/02/2016 DK ROSS MD Ot H35.30 UNSPECIFIED MACULAR DEGENERATION 04/02/2016 DK ROSS MD Ot H40.9 UNSPECIFIED GLAUCOMA 04/02/2016 DK ROSS MD Ot H54.0 BLINDNESS, BOTH EYES 04/02/2016 DK ROSS MD Ot I10 ESSENTIAL (PRIMARY) HYPERTENSION 04/02/2016 DK ROSS MD Ot I25.10 ATHSCL HEART DISEASE OF [place] CORONARY 04/02/2016 DK ROSS MD Ot I48.0 PAROXYSMAL ATRIAL FIBRILLATION 04/02/2016 DK ROSS MD Ot Z95.5 PRESENCE OF CORONARY ANGIOPLASTY IMPLANT 04/23/2016 YESIKA BOWIE MD Ot I48.2 CHRONIC ATRIAL FIBRILLATION 04/23/2016 YESIKA BOWIE MD Ot R53.1 WEAKNESS 04/23/2016 YESIKA BOWIE MD Ot Z74.2 NEED FOR ASSIST AT HOME NO HOUSE MEMB 04/23/2016 YESIKA BOWIE MD Ot Z79.02 HALF-WAY (CURRENT) USE OF ANTITHROMBOTI 07/21/2016 MIKALA GALLARDO Ot M54.5 LOW BACK PAIN 07/21/2016 MIKALA GALLARDO WOOD CUTTER Ot M54.6 PAIN IN THORACIC SPINE 08/11/2016 MIKALA GALLARDO WOOD CUTTER Ot M54.5 LOW BACK PAIN 08/11/2016 MIKALA GALLARDO WOOD CUTTER Ot M54.6 PAIN IN THORACIC SPINE 04/22/2017 MIKALA GALLARDO WOOD CUTTER Ot M54.5 LOW BACK PAIN 04/22/2017 MIKALA GALLARDO WOOD CUTTER Ot M54.6 PAIN IN THORACIC SPINE 04/26/2017 MIKALA GALLARDO WOOD CUTTER Ot R41.3 OTHER AMNESIA 04/26/2017 MIKALA GALLARDO WOOD CUTTER Ot R41.3 OTHER AMNESIA 04/26/2017 MIKALA GALLARDO WOOD CUTTER Ot R41.3 OTHER AMNESIA 05/16/2017 MIKALA GALLARDO WOOD CUTTER Ot R41.3 OTHER AMNESIA Procedures There is [...] Status Pt. Type Provider Facility Loc./Unit Complaint [id number] 04/22/2017 14:00:00 04/22/2017 23:59:59 CLS Outpatient MIKALA GALLARDO [facility] RAD MEMORY LOSS [id number] 07/20/2016 12:14:00 07/20/2016 23:59:59 CLS Outpatient MIKALA GALLARDO [facility] RAD LOW BACK PAIN, THORACIC BACK PAIN,FALL [id number] 03/30/2016 22:55:00 04/02/2016 08:48:00 DIS Inpatient DK ROSS MD [facility] 4TH CHEST PAIN,PAROXYSMAL A- FIB [id number] 03/14/2016 10:43:00 03/14/2016 13:55:00 DIS Emergency AZEB FARRELL, YESIKA Gallo [facility] ER BEE STING/DIZZINESS/ CONSTIPATION [id number] 01/03/2018 14:15:00 ACT Inpatient CALLIE BARON MD [facility] 4TH FALL @ HOME W/CONCUSSION,DIZZINESS W GAIT INSTABIL
--- NOTE | 2018-01-05 13:14 | Diagnostic Imaging Report ---
PROCEDURE: CT head, face, and cervical spine without contrast. TECHNIQUE: Multiple contiguous axial images were obtained through the head, neck, and facial bones without the use of intravenous contrast. Sagittal and coronal reformations through the cervical spine and facial bones were also performed. INDICATION: Fall. COMPARISON: Comparison is made with prior head and cervical spine CT from two days earlier. FINDINGS: CT brain: A left posterior parietal scalp hematoma is again noted. There also appears to be some scalp swelling along the right posterior parietal region. The ventricular size and sulcal pattern are stable. No sulcal effacement or midline shift is seen. No acute intra-axial or extra-axial hemorrhage is seen. The cisterns are patent. IMPRESSION: Scalp hematomas. No acute intracranial process is detected. CT cervical spine: Curvature is normal. There is an obliquely oriented lucency extending through the base of the odontoid, consistent with an odontoid fracture. This primarily involves the base, however the posterior component of the fracture does extend slightly into the body of C2. No displacement is identified. The bony canal is widely patent. No other fractures are identified. The prevertebral tissues are normal. There is generalized cervical spondylosis seen. IMPRESSION: Acute C2 fracture, primarily involving the base of the odontoid. No displacement is identified. No other fractures are seen. CT maxillofacial: The mandible is intact. The zygomatic arches are intact. The maxillary sinus jacobo are intact. The orbital jacobo appear to be intact. There is questionable minimally displaced fracture of the right nasal bone. There appears to be some overlying soft tissue swelling present. Nasal septum is intact. Paranasal sinuses are clear. IMPRESSION: Probable minimally displaced right nasal bone fracture. No other significant abnormality is seen. Results were called to the emergency department prior to this dictation. Dictated by: Dictated on workstation # [id number]
--- NOTE | 2018-01-05 13:20 | Diagnostic Imaging Report ---
EXAM: AP supine chest and left ribs. INDICATION: Injury FINDINGS: The supine view of the chest shows the heart size is stable when compared to the prior exam of 01/03/2018. The lungs are clear. There is no sign of failure, pneumonia or of pleural effusion. There is no pneumothorax identified although a small pneumothorax could be present yet undetected on a supine film such as this. The mediastinum is not widened. The views of the left ribs fail to show any evidence for a displaced rib fracture. Incidental note is made of fairly severe degenerative disease involving the left shoulder joint. IMPRESSION: There is no evidence of acute cardiopulmonary abnormality. There is no sign of a displaced rib fracture of the left either. Dictated by: Dictated on workstation # [id number]
--- OUTSIDE RECORDS SUMMARY | 2018-01-05 14:43 | XMS REPORT | Continuity of Care Document ---
Author Author [facility] Organization [facility] Address Unknown Phone Unavailable Allergies Active Description Code Type Severity Reaction Onset Reported/Identified Relationship to Patient Clinical Status Yes isoflurane [id number] Drug Allergy Unknown N/A 04/01/2016 Medications There is no data. Problems Date Dx Coded Attending Type Code Diagnosis Diagnosed By 03/14/2016 YESIKA BOWIE MD Ot I48.2 CHRONIC ATRIAL FIBRILLATION 03/14/2016 YESIKA BOWIE MD Ot R53.1 WEAKNESS 03/14/2016 YESIKA BOWIE MD Ot Z74.2 NEED FOR ASSIST AT HOME NO HOUSE MEMB 03/14/2016 YESIKA BOWIE MD Ot Z79.02 FCI (CURRENT) USE OF ANTITHROMBOTI 04/02/2016 DK ROSS [...] MEMB 04/23/2016 YESIKA BOWIE MD Ot Z79.02 FCI (CURRENT) USE OF ANTITHROMBOTI 07/21/2016 MIKALA GALLARDO Ot M54.5 LOW BACK PAIN 07/21/2016 MIKALA GALLARDO RIGGING MAN Ot M54.6 PAIN IN THORACIC SPINE 08/11/2016 MIKALA GALLARDO RIGGING MAN Ot M54.5 LOW BACK PAIN 08/11/2016 MIKALA GALLARDO RIGGING MAN Ot M54.6 PAIN IN THORACIC SPINE 04/22/2017 MIKALA GALLARDO RIGGING MAN Ot M54.5 LOW BACK PAIN 04/22/2017 MIKALA GALLARDO RIGGING MAN Ot M54.6 PAIN IN THORACIC SPINE 04/26/2017 MIKALA GALLARDO RIGGING MAN Ot R41.3 OTHER AMNESIA 04/26/2017 MIKALA GALLARDO RIGGING MAN Ot R41.3 OTHER AMNESIA 04/26/2017 MIKALA GALLARDO RIGGING MAN Ot R41.3 OTHER AMNESIA 05/16/2017 MIKALA GALLARDO RIGGING MAN Ot R41.3 OTHER AMNESIA Procedures There is [...] Status Pt. Type Provider Facility Loc./Unit Complaint [id number] 04/22/2017 14:00:00 04/22/2017 23:59:59 CLS Outpatient MIKALA GALLARDO [facility] RAD MEMORY LOSS [id number] 07/20/2016 12:14:00 07/20/2016 23:59:59 CLS Outpatient MIKALA GALLARDO [facility] RAD LOW BACK PAIN, THORACIC BACK PAIN,FALL [id number] 03/30/2016 22:55:00 04/02/2016 08:48:00 DIS Inpatient DK ROSS MD [facility] 4TH CHEST PAIN,PAROXYSMAL A- FIB [id number] 03/14/2016 10:43:00 03/14/2016 13:55:00 DIS Emergency AZEB FARRELL, YESIKA Gallo [facility] ER BEE STING/DIZZINESS/ CONSTIPATION [id number] 01/03/2018 14:15:00 ACT Inpatient CALLIE BARON MD [facility] 4TH FALL @ HOME W/CONCUSSION,DIZZINESS W GAIT INSTABIL
[2018-01-05 15:30] VITALS: BP 146/62
[2018-01-05] MEDS: HYDROcodone/APAP 5 MG/325 MG (LORTAB) TAB PO PRN (15:59)
[2018-01-05] MEDS ORDERED: fentaNYL INJECTION 100 MCG/2 ML AMP IV PRN (16:00)
[2018-01-05] MEDS ORDERED: CATHETER FLUSH 10 ML SYR IV PRN (16:00)
[2018-01-05 16:22] VITALS: BP 141/62
--- NOTE | 2018-01-05 16:25 | Physical Therapy Evaluation ---
PT Evaluation-General Medical Diagnosis Admission Date Jan 05, 2018 at 14:13 Medical Diagnosis: nondisplaced C2 fracture/persistent dizziness Onset Date: Jan 04, 2018 Therapy Diagnosis Therapy Diagnosis: generalized weakness/debility Height/Weight Height (Feet): 5 Height (Inches): 2.00 Weight (Pounds): 120 Weight (Ounces): 0 Precautions Precautions/Isolations: Fall Prevention, Standard Precautions Weight Bear Status Right Lower Extremity: Right Full Weight Bearing Left Lower Extremity: Left Full Weight Bearing Referral Physician: John Reason for Referral: Evaluation/Treatment Medical History Pertinent Medical History: Atrial Fib, CAD, HTN Additional Medical History just released from hospital yesterday with education from PT on importance of uses FWW at home to avoid fall. Patient apparently had 2 falls at home and reports she was not using her FWW. Current History EMS secondary to fall resulting in C2 fracture Reviewed History: Yes Social History Home: Single Level Current Living Status: Spouse spouse is blind and LOWER BRULE and patient is 90% blind and LOWER BRU[place] Prior/Core FIM Prior Level of Function Functional Sampson Measure 0=Not Assessed/NA 4=Minimal Assistance 1=Total Assistance 5=Supervision or Setup 2=Maximal Assistance 6=Modified Sampson 3=Moderate Assistance 7=Complete Sampson Bed Mobility: 6 Transfers (B,C,W/C) (FIM): 6 Gait: 6 furniture walks PT Evaluation-Current Subjective Patient is very agreeable to participate with PT. Pain Numeric Pain Scale: 5-Moderate Pain Location: Posterior Location Body Site: Neck Pain Description: Acute Objective Patient Orientation: Normal For Age Problem Solving: Good ROM/Strength ROM Lower Extremities bilateral LE WNL Strength Lower Extremities left knee flexion/extension 4-/5; hip flexion 4-/5; DF/PF 4-/5 right knee flexion/extension 4-/5; hip flexion 4-/5; DF/PF 4-/5 Integumentary/Posture Integumentary multiple contusions head, face, ribs, arms Bowel Incontinence: No Bladder Incontinence: No Posture WNL Neuromuscular (Tone, Coordination, Reflexes) diminished coordination and proprioception due to being blind and unfamiliar with environment Sensory Vision: Blind Legally Hearing: Impaired Sensation Right Lower Extremit: Intact Sensation Left Lower Extremity: Intact Transfers Functional Sampson Measure 0=Not Assessed/NA 4=Minimal Assistance 1=Total Assistance 5=Supervision or Setup 2=Maximal Assistance 6=Modified Sampson 3=Moderate Assistance 7=Complete Sampson Transfers (B, C, W/C) (FIM): 4 Scootin Rollin Supine to/from Sit: 4 Sit to/from Stand: 4 Gait Mode of Locomotion: Walk Anticipated Mode of Locomotion: Walk Gait (FIM): 4 Distance (FIM): 3=150 ft Distance: 275' Gait Level of Assist: 4 Gait Persons Needed: 1 Gait Assistive Device: FWW Comments/Gait Description initially 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 female, will benefit from skilled PT to address functional strength and mobility to improve current LOF. Patient and spouse, from patient report, would benefit from AL or NH due to failed attempt to return to home safely. Rehab Potential: Fair PT Detention Goals Detention Goals PT Outboard System Operator Goals Time Frame: Jan 13, 2018 Transfers (B,C,W/C) (FIM): 5 Gait (FIM): 5 Gait distance (FIM): 3=150 ft Gait Level of Assist: 5 Gait Assistive Device: FWW PT Plan Problem List Problem List: Safety, Balance, Gait, Bed Mobility Treatment/Plan Treatment Plan: Continue Plan of Care Treatment Plan: Bed Mobility, Education, Functional Activity Terrie, Functional Strength, Gait, Safety, Therapeutic Exercise, Transfers Treatment Duration: Jan 13, 2018 Frequency: 6 times per week Estimated Hrs Per Day: .25 hour per day Patient and/or Family Agrees t: Yes Safety Risks/Education Patient Education: Safety Issues Teaching Recipient: Patient Teaching Methods: Discussion Response to Teaching: Verbalize Understanding Discharge Recommendations Therapy D/C Recommendations: Assisted Living, [facility]fp Placement, Care Home (TCU/NH) Time/GCodes Time In: 1555 Time Out: 1615 Total Billed Treatment Time: 20 Total Billed Treatment 1 visit EVModC 20 min G Codes Necessary: Yes PT/OT Therapy GCodes Therapy Functional Limitation: Physical Therapy Test(s)/Tool used to determine: Level of Assistance Scale Functional Limitation-Current Charge Code: MOBCUR Modifier: CK Functional Limitation-Goal Charge Code: MOBGOAL Modifier: PARK LIM PT Jan 05, 2018 16:25
[2018-01-05] MEDS ORDERED: INFLUENZA TRIvalent 2017-2018 0.5 ML/45 MCG SYR IM ONE ×2 (17:15→18:00)
--- NOTE | 2018-01-05 18:55 | History & Physicial ---
History of Present Illness History of Present Illness Reason for visit/HPI Patient fell at home. Patient has a C2 fracture. Patient also has nasal fracture. Patient on 2 blood thinness. Patient age 87. Patient's at home who is blind. Yesterday patient was discharged from hospital for fall. History of afternoon patient fell again. Patient had multiple falls. Patient has dizziness. Patient then has been unable to take care of themselves at home. Patient admitted for observation Date of Admission Jan 05, 2018 at 14:13 Time Seen by Provider: 18:50 I consulted on this patient on 01/05/18 18:50 Attending Physician Jhon Cain DO Admitting Physician Blanca Husain MD Consult Allergies and Home Medications Allergies Coded Allergies: isoflurane (Verified Allergy, Unknown, 04/01/16) Home Medications Alprazolam 0.25 Mg Tablet, 0.25 MG PO HS, (Reported) Alprazolam 0.25 Mg Tablet, 0.25 MG PO DAILY PRN for ANXIETY, (Reported) Amlodipine Besylate 10 Mg Tablet, 10 MG PO DAILY, (Reported) Apixaban 2.5 Mg Tablet, 2.5 MG PO BID, (Reported) Citalopram Hydrobromide 10 Mg Tablet, 10 MG PO DAILY, (Reported) Clopidogrel Bisulfate 75 Mg Tablet, 75 MG PO DAILY, (Reported) Dorzolamide HCl 10 Ml Drops, 1 DROP OU 0700,1900, (Reported) Latanoprost 2.5 Ml Drops, 1 DROP OU HS, (Reported) Metoprolol Succinate 200 Mg Tab.er.24h, 200 MG PO DAILY, (Reported) Polyethylene Glycol 3350 510 Gm Powder, 17 GM PO DAILY, (Reported) MIXES IN 1/2 CUP OF PRUNE JUICE Propylene Glycol/Peg 400 15 Ml Drops, 1 DROP OS 1000,1200,1400, (Reported) Patient Home Medication List Home Medication List Reviewed: Yes Past Sodzmsm-Sfhuys-Vpxuic Hx Patient Social History Marrital Status: Employed/Student: unemployed Alcohol Use: Denies Use Recreational Drug Use: No Smoking Status: Former Smoker Former Smoker, Quit: Jan 06, 2000 Type Used: Cigarettes 2nd Hand Smoke Exposure: No Physical Abuse Screen: No Sexual Abuse: No Recent Foreign Travel: No Contact w/other who traveled: No Recent Hopitalizations: No Recent Infectious Disease Expo: No Seasonal Allergies Seasonal Allergies: No Surgeries Yes (COLONOSCOPY, EGD, HEART CATH.,PARTIAL HYSTERECTOMY, TONSILECTOMY, FUNDOPLIC ) Hysterectomy Respiratory No Cardiovascular Yes Atrial Fibrillation, Coronary Artery Disease, Hypertension Neurological No Reproductive System Hx Reproductive Disorders: No Genitourinary No Gastrointestinal No Musculoskeletal Yes (current c- spine fx this admit 01/05/18) Fractures Endocrine History of Endocrine Disorders: No HEENT History of HEENT Disorders: Yes 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 Cancer No Psychosocial History of Psychiatric Problem: No Integumentary History of Skin or Integumenta: No Blood Transfusions History of Blood Disorders: No Family Medical History Family Hx: KIDNEY REMOVED 19 MOTHER MIGRAINES 19 MOTHER SKIN CANCER 19 FATHER Constitutional: weakness, other (Dizziness and falls) EENTM: other (Nasal fracture, C2 fracture) Respiratory: no symptoms reported Cardiovascular: no symptoms reported Gastrointestinal: no symptoms reported Genitourinary: no symptoms reported Physical Exam Vital Signs Vital Signs - First Documented 01/05/18 12:15 Temp 98.2 Pulse 91 Resp 20 B/P (MAP) 140/67 (91) Pulse Ox 96 O2 Delivery Room Air Capillary Refill : Less Than 3 Seconds General Appearance: No Apparent Distress, Thin HEENT: Other (Nasal fracture, wearing a collar, G2 fracture) Neck: Other (He to fracture) Respiratory: Lungs Clear, No Accessory Muscle Use, No Respiratory Distress Cardiovascular: Regular Rate, Rhythm, No Murmur Gastrointestinal: Non Tender, Soft Assessment/Plan Assessment and Plan Multiple falls. C2 fracture. Nasal fracture. Dizziness. Onto blood thinners. Blind has been at home Problems: Admission Diagnosis Admission Status: Observation Clinical Quality Measures DVT/VTE Risk/Contraindication: Risk Factor Score Per Nursin RFS Level Per Nursing on Admit: 4+=Very High JHON CAIN DO Jan 05, 2018 18:55
[2018-01-05 20:03] VITALS: BP 124/66
[2018-01-05] MEDS: LATANOPROST 0.005% (XALATAN) OPHTH SOLN 2.5 ML OU SCH (20:39)
[2018-01-05] MEDS: ALPRAZolam 0.25 MG (XANAX) TAB PO SCH (20:39)
[2018-01-05] MEDS: POLYETHYLENE GLYCOL 17 GM (MIRALAX) PACK PO SCH (20:39)
[2018-01-05] MEDS: CATHETER FLUSH 10 ML SYR IV SCH (20:39)
[2018-01-06] VITALS: BP 133/60
[2018-01-06 04:00] VITALS: BP 130/58
[2018-01-06] MEDS: HYDROcodone/APAP 5 MG/325 MG (LORTAB) TAB PO PRN ×3 (04:46→21:22)
[2018-01-06] MEDS: CATHETER FLUSH 10 ML SYR IV SCH ×3 (04:46→20:20)
--- NOTE | 2018-01-06 08:14 | Progress Note (SOAP) ---
Subjective Time Seen by Provider: 08:10 Subjective/Events-last exam Left rib pain today. Patient willing to go assisted living or shelter with Objective Exam Vital Signs Date Time Temp Pulse Resp B/P (MAP) Pulse Ox O2 Delivery O2 Flow Rate FiO2 01/06/18 04:00 98.7 87 16 130/58 (82) 98 Room Air 01/06/18 00:00 98.6 77 16 133/60 (84) 95 Room Air 01/05/18 20:03 97.9 75 20 124/66 (85) 97 Room Air 01/05/18 16:22 98.7 100 18 141/62 (88) 98 Room Air 01/05/18 15:30 98.7 100 18 146/62 (90) 97 Room Air 01/05/18 15:30 Room Air 01/05/18 15:06 98.2 91 20 140/67 (91) 96 01/05/18 12:15 98.2 91 20 140/67 (91) 96 Room Air I & O 01/06/18 07:00 Intake Total 540 ml Balance 540 ml Capillary Refill : Less Than 3 Seconds General Appearance: No Apparent Distress, Thin Assessment/Plan Assessment/Plan Assess & Plan/Chief Complaint Fractures C2. Multiple falls. Pain in left ribs. Waiting for placement for patient and Clinical Quality Measures Admission Status Admission Dx Multiple falls. C2 fracture. Nasal fracture. Dizziness. Onto blood thinners. 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
[2018-01-06 08:30] VITALS: BP 134/63
[2018-01-06] MEDS: amLODIPine 10 MG (NORVASC) TAB PO SCH (09:01)
[2018-01-06] MEDS: meTOprolol SUCCINATE 100 MG (TOPROL XL) TAB PO SCH (09:01)
[2018-01-06] MEDS: ARTIFICAL TEARS 0.4 ML UNIT DOSE (REFRESH PLUS) OS SCH ×3 (09:02→15:40)
[2018-01-06 09:18] LABS: HEMOGLOBIN 12.9 G/DL (11.5-16.0); MEAN PLATELET VOLUME 10.6 FL (7.4-10.4); RED BLOOD COUNT 4.01 10^6/uL (4.35-5.85); RED CELL DISTRIBUTION WIDTH 13.1 % (10.0-14.5); WHITE BLOOD COUNT 9.4 10^3/uL (4.3-11.0)
[2018-01-06 09:41] LABS: BUN/CREATININE RATIO 20; CALCIUM 9.7 MG/DL (8.5-10.1); CARBON DIOXIDE 25 MMOL/L (21-32); CHLORIDE 103 MMOL/L (98-107); CREATININE SERUM 0.75 MG/DL (0.60-1.30); GFR ESTIMATED > 60; GLUCOSE 99 MG/DL (70-105); POTASSIUM 4.1 MMOL/L (3.6-5.0); SODIUM 135 MMOL/L (135-145)
--- NOTE | 2018-01-06 11:19 | Physical Therapy Daily Note ---
PT Daily Note-Current Subjective Patient agrees to PT. Pain Numeric Pain Scale: 5-Moderate Pain Location: Left Location Body Site: Side Pain Description: Ache, Pressure, Acute Mental Status Patient Orientation: Normal For Age Transfers Functional [place] Measure 0=Not Assessed/NA 4=Minimal Assistance 1=Total Assistance 5=Supervision or Setup 2=Maximal Assistance 6=Modified [place] 3=Moderate Assistance 7=Complete IndependenceIRFPAI Quality Coding Scale 6 Independent with activity with or without an assistive device 5 Patient requires set up or clean up by helper. Patient completes activity by themselves 4 Supervision or touching assist (CGA). [place] provide cues , steadying assist 3 The helper provides less than half the effort to complete the activity 2 The helper provides more than half the effort to complete the activity 1 Dependent. The helper does all the effort to complete an activity 7 Patient refused to complete or attempt activity 9 The patient did not perform the activity before the current illness or injury 88 Not attempted due to Medical conditions or safety concerns Transfers (B, C, W/C) (FIM): 5 Scootin Sit to/from Stand: 5 Weight Bearing Right Lower Extremity: Right Full Weight Bearing Left Lower Extremity: Left Full Weight Bearing Gait Training Gait (FIM): 5 Distance (FIM): 3=150 ft Distance: 300' Gait Level of Assist: 5 Gait Assistive Device: FWW Steady gait sequence. Due to blindness, patient is able to ambulate with FWW in straight hallway with SBA for safety and vision Assessment Patient tolerated treatment well and remains up in recliner with needs met. SOLE ROUNDER to ambulate with patient PRN PT Team Truck Driver Goals Team Truck Driver Goals PT Team Truck Driver Goals Time Frame: Jan 13, 2018 Transfers (B,C,W/C) (FIM): 5 Gait (FIM): 5 Gait distance (FIM): 3=150 ft Gait Level of Assist: 5 Gait Assistive Device: FWW PT Plan Treatment/Plan Treatment Plan: Continue Plan of Care Treatment Plan: Bed Mobility, Education, Functional Activity Terrie, Functional Strength, Gait, Safety, Therapeutic Exercise, Transfers Treatment Duration: Jan 13, 2018 Frequency: 6 times per week Estimated Hrs Per Day: .25 hour per day Patient and/or Family Agrees t: Yes Time/GCodes Time In: 1056 Time Out: 1108 Total Billed Treatment Time: 12 Total Billed Treatment 1 visit FA 12 min PT/OT Therapy GCodes Therapy Functional Limitation: Physical Therapy Test(s)/Tool used to determine: Level of Assistance Scale Functional Limitation-Current Charge Code: MOBCUR Modifier: CK Functional Limitation-Goal Charge Code: MOBGOERIC Modifier: PARK LIM PT Jan 06, 2018 11:19
[2018-01-06 12:26] VITALS: BP 113/58
--- NOTE | 2018-01-06 14:39 | Occupational Therapy Eval ---
OT Evaluation-General/PLF Medical Diagnosis Admission Date Jan 05, 2018 at 14:13 Medical Diagnosis: nondisplaced C2 fracture/persistent dizziness Onset Date: Jan 04, 2018 Therapy Diagnosis Therapy Diagnosis: decreased self care skills Height/Weight Height (Feet): 5 Height (Inches): 2.00 Weight (Pounds): 120 Weight (Ounces): 0.0 Precautions Precautions/Isolations: Fall Prevention, Standard Precautions Safety Interventions: Bed Exit Alarm Referral Physician: John Medical History Pertinent Medical History: Atrial Fib, CAD, HTN Additional Medical History CTS, [place] Current History Pt had a fall at home resulting in C2 fracture and nasal fracture. Pt has a c- collar in place Social History Home: Multilevel (Pt states they have a basement that she does use occasionally ) Current Living Status: Spouse Entry Into Home: Stairs With Railing Steps Into Home: 4 ADL-Prior Level of Function ADL PLOF Comments Pt reports completing ADLs and mobility without assistance, but has been falling lately. Pt does housework. Pt and spouse have a coach tour driver secondary to both having visual deficits. Pt states she wants to return home with in-home care. States she wants to stay in her home and they can't afford assisted living. DME/Equipment: Grab Bars, Tub/Shower Drive Self: No OT Current Status Subjective Pt in bed, agrees to therapy. Pt reports 3/10 neck and left rib pain. 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 Pt requests to use restroom. Dons slippers with minimal assistance. Gait to restroom with FWW and cues secondary to decreased vision. Pt transferred to toilet with CGA. Pt able to complete toileting hygiene and clothing management with supervision. Stood at sink to wash hands with supervision. Pt returned to EOB, required minimal assistance for LE during sit to supine. Pt resting in bed with needs met, spouse present, and bed alarm on after session. Functional [place] Measure 0=Not Assessed/NA 4=Minimal Assistance 1=Total Assistance 5=Supervision or Setup 2=Maximal Assistance 6=Modified [place] 3=Moderate Assistance 7=Complete IndependenceIRFPAI Quality Coding Scale 6 Independent with activity with or without an assistive device 5 Patient requires set up or clean up by helper. Patient completes activity by themselves 4 Supervision or touching assist (CGA). [place] provide cues , steadying assist 3 The helper provides less than half the effort to complete the activity 2 The helper provides more than half the effort to complete the activity 1 Dependent. The helper does all the effort to complete an activity 7 Patient refused to complete or attempt activity 9 The patient did not perform the activity before the current illness or injury 88 Not attempted due to Medical conditions or safety concerns Eating (FIM): 5 (Pt reports feeding self after set up.) Lower Body Dressing (FIM): 4 (slippers only) Toileting (FIM): 5 Toilet/Commode Transfer (FIM): 4 (CGA) Education OT Patient Education: Rehab process Teaching Recipient: Patient Teaching Methods: Discussion Response to Teaching: Verbalize Understanding OT Short Term Goals Short Term Goals 1=Demonstrate adherence to instructed precautions during ADL tasks. 2=Patient will verbalize/demonstrate understanding of assistive devices/ modifications for ADL. 3=Patient will improve strength/tolerance for activity to enable patient to perform ADL's. OT Group Home Goals Manager Business Intelligence Goals Time Frame: Jan 13, 2018 Grooming(FIM): 5 Bathing(FIM): 5 Upper Body Dressing(FIM): 5 Lower Body Dressing(FIM): 5 Toilet/Commode Transfer(FIM): 5 Additional Goals: 1-Demonstrate ADL Tasks, 2-Verbalize Understanding, 3- ImproveStrength/Terrie 1=Demonstrate adherence to instructed precautions during ADL tasks. 2=Patient will verbalize/demonstrate understanding of assistive devices/ modifications for ADL. 3=Patient will improve strength/tolerance for activity to enable patient to perform ADL's. OT Education/Plan Problem List/Assessment Assessment: Decreased Activ Tolerance, Decreased UE Strength, Dependent Transfers, Impaired Self-Care Skills Pt admitted with C2 fracture following fall at home. Pt demonstrates decreased mobility and ADL functioning. Pt has impaired vision and requires cues during functional tasks. Pt to benefit from skilled OT intervention for ADL training, transfers, and strengthening to increase level of independence and allow safe discharge. Discharge Recommendations Plan/Recommendations: Continue POC Treatment Plan/Plan of Care Treatment,Training & Education: Yes Patient would benefit from OT for education, treatment and training to promote independence in ADL's, mobility, safety and/or upper extremity function for ADL' s. Plan of Care: ADL Retraining, Functional Mobility, UE Funct Exercise/Act Treatment Duration: Jan 13, 2018 Frequency: 5 times per week Estimated Hrs Per Day: .25 hour per day Agreement: Yes Rehab Potential: Fair Time/GCodes Start Time: 14:01 Stop Time: 14:24 Total Time Billed (hr/min): 23 Billed Treatment Time 1 visit, EVM(10minutes), ADL(13minutes) PT/OT Therapy GCodes Therapy Functional Limitation: Occupational Therapy Test(s)/Tool used to determine: Level of Assistance Scale Functional Limitation-Current Charge Code: SELFCUR Modifier: CK Functional Limitation-Goal Charge Code: SELFGOAL Modifier: LUCRETIA BELTRÁN OT Jan 06, 2018 14:39
[2018-01-06 16:00] VITALS: BP 143/67
[2018-01-06 20:00] VITALS: BP 130/71
[2018-01-06] MEDS: ALPRAZolam 0.25 MG (XANAX) TAB PO SCH (20:19)
[2018-01-06] MEDS: LATANOPROST 0.005% (XALATAN) OPHTH SOLN 2.5 ML OU SCH (20:19)
[2018-01-06] MEDS: POLYETHYLENE GLYCOL 17 GM (MIRALAX) PACK PO SCH (20:19)
[2018-01-07 01:25] VITALS: BP 120/57
[2018-01-07 03:30] VITALS: BP 147/67
[2018-01-07] MEDS: CATHETER FLUSH 10 ML SYR IV SCH ×3 (05:35→21:00)
[2018-01-07] MEDS: HYDROcodone/APAP 5 MG/325 MG (LORTAB) TAB PO PRN ×2 (07:48→12:09)
[2018-01-07 08:00] VITALS: BP 128/66
[2018-01-07] MEDS: meTOprolol SUCCINATE 100 MG (TOPROL XL) TAB PO SCH (10:50)
[2018-01-07] MEDS: ARTIFICAL TEARS 0.4 ML UNIT DOSE (REFRESH PLUS) OS SCH ×3 (10:51→16:07)
[2018-01-07] MEDS: amLODIPine 10 MG (NORVASC) TAB PO SCH (10:51)
--- NOTE | 2018-01-07 11:15 | Physical Therapy Daily Note ---
PT Daily Note-Current Subjective Pt says pain is "okay". Pt is on toilet upon my arrival. Agreeable to PT Mental Status Patient Orientation: Person, Place, Situation Transfers Functional [place] Measure 0=Not Assessed/NA 4=Minimal Assistance 1=Total Assistance 5=Supervision or Setup 2=Maximal Assistance 6=Modified [place] 3=Moderate Assistance 7=Complete IndependenceIRFPAI Quality Coding Scale 6 Independent with activity with or without an assistive device 5 Patient requires set up or clean up by helper. Patient completes activity by themselves 4 Supervision or touching assist (CGA). [place] provide cues , steadying assist 3 The helper provides less than half the effort to complete the activity 2 The helper provides more than half the effort to complete the activity 1 Dependent. The helper does all the effort to complete an activity 7 Patient refused to complete or attempt activity 9 The patient did not perform the activity before the current illness or injury 88 Not attempted due to Medical conditions or safety concerns Min A as needed to stand and pericare required after toileting. Min A to get into bed. Weight Bearing Right Lower Extremity: Right Full Weight Bearing Left Lower Extremity: Left Full Weight Bearing Gait Training Gait Assistive Device: FWW Pt amb 150ft with SBA, slow steady speed Assessment Current Status: Good Progress [place] well. Pt resting in bed post therapy session with call light and all needs met. PT Alf Goals Discharging Machine Operator Goals PT Discharging Machine Operator Goals Time Frame: Jan 13, 2018 Transfers (B,C,W/C) (FIM): 5 Gait (FIM): 5 Gait distance (FIM): 3=150 ft Gait Level of Assist: 5 Gait Assistive Device: FWW PT Plan Treatment/Plan Treatment Plan: Continue Plan of Care Treatment Plan: Bed Mobility, Education, Functional Activity Terrie, Functional Strength, Gait, Safety, Therapeutic Exercise, Transfers Treatment Duration: Jan 13, 2018 Frequency: 6 times per week Estimated Hrs Per Day: .25 hour per day Patient and/or Family Agrees t: Yes Time/GCodes Time In: 1025 Time Out: 1045 Total Billed Treatment Time: 20 Total Billed Treatment 1, gait 20min PT/OT Therapy GCodes Therapy Functional Limitation: Occupational Therapy Test(s)/Tool used to determine: Level of Assistance Scale Functional Limitation-Current Charge Code: SELFCUR Modifier: CK Functional Limitation-Goal Charge Code: SELFGOAL Modifier: BERNARDO VELAZQUEZ CPTA Jan 07, 2018 11:15
[2018-01-07 12:00] VITALS: BP 113/79
[2018-01-07] MEDS: DORZOLAMIDE 2% 10 ML BTL (TRUSOPT) OU SCH (12:15)
[2018-01-07] MEDS ORDERED: PATIENT MAY USE OWN MED,SINGLE MED PO SCH (12:15)
[2018-01-07] MEDS: OPTH PO SCH ×2 (12:15→20:36)
[2018-01-07] MEDS: DORZOLAMIDE 2% PO SCH ×2 (12:15→20:36)
--- NOTE | 2018-01-07 12:47 | Progress Note-Hospitalist ---
Subjective HPI/CC On Admission Date Seen by Provider: Jan 07, 2018 Time Seen by Provider: 12:00 Subjective/Events-last exam Patient is mostly concerned about taking her eyedrops incorrectly. She complains about the next brace and how it's poking into her neck. I reviewed the director of social media marketing's note and the patient and her are unable to afford assisted living but plan on going home with some help from medical [place]. She denies having any lower motor weakness and is able to ambulate to the bathroom. Review of Systems Musculoskeletal: neck pain Objective Exam Vital Signs Vital Signs Date Time Temp Pulse Resp B/P (MAP) Pulse Ox O2 Delivery O2 Flow Rate FiO2 01/05/18 12:15 98.2 91 20 140/67 (91) 96 Room Air Capillary Refill : Less Than 3 Seconds General Appearance: No Apparent Distress, Chronically ill HEENT: Other (Ecchymosis around bilateral eyes over her ridge of her nose and face) Neck: Limited Range of Motion Respiratory: Lungs Clear, Normal Breath Sounds Cardiovascular: Irregularly Irregular, Tachycardia Gastrointestinal: Non Tender, Soft Extremity: Non Tender, No Calf Tenderness Neurologic/Psychiatric: Alert, Oriented x3, No Motor/Sensory Deficits, Normal Mood/Affect, Other (Skin tear on the left arm is redressed) Skin: Pallor Assessment/Plan Assessment and Plan Assess & Plan/Chief Complaint 1. C2 cervical fracture currently stable without cord injury 2. Multiple falls 3. Nasal fracture 4. Left arm skin tear 5. Chronic atrial fibrillation with chronic anticoagulation currently blood thinners are being held-ray does not currently well controlled on Toprol ,we'll consider consulting cardiology 6. Glaucoma and vision loss contributing to instability will restart her eyedrops as previously prescribed 7. Previous rib fractures with low-grade temperature 8. Mild constipation 9. Difficult social situation with increased frailty and falls at home but unable to afford assisted living Plan for discharge Tuesday Time spent with patient (mins): 20 RANDA MERCER MD Jan 07, 2018 12:47 pm
[2018-01-07 16:00] VITALS: BP 142/74
[2018-01-07] MEDS: ALPRAZolam 0.25 MG (XANAX) TAB PO SCH ×2 (16:07→20:19)
[2018-01-07] MEDS: ALPRAZolam 0.25 MG (XANAX) TAB PO PRN (16:07)
[2018-01-07] MEDS: POLYETHYLENE GLYCOL 17 GM (MIRALAX) PACK PO SCH (20:19)
[2018-01-07 21:00] VITALS: BP 127/61
[2018-01-07] MEDS: LATANOPROST 0.005% (XALATAN) OPHTH SOLN 2.5 ML OU SCH (21:00)
[2018-01-08 01:00] VITALS: BP 114/62
[2018-01-08 04:53] VITALS: BP 129/58
[2018-01-08] MEDS: CATHETER FLUSH 10 ML SYR IV SCH ×3 (06:36→20:44)
[2018-01-08] MEDS: DORZOLAMIDE 2% 10 ML BTL (TRUSOPT) OU SCH ×2 (06:37→17:34)
[2018-01-08] MEDS: OPTH PO SCH ×2 (06:38→13:56)
[2018-01-08] MEDS: DORZOLAMIDE 2% PO SCH ×2 (06:38→13:56)
[2018-01-08 08:22] VITALS: BP 139/61
[2018-01-08] MEDS: amLODIPine 10 MG (NORVASC) TAB PO SCH (09:34)
[2018-01-08] MEDS: meTOprolol SUCCINATE 100 MG (TOPROL XL) TAB PO SCH (09:34)
[2018-01-08] MEDS: ALPRAZolam 0.25 MG (XANAX) TAB PO PRN (09:35)
[2018-01-08] MEDS: ARTIFICAL TEARS 0.4 ML UNIT DOSE (REFRESH PLUS) OS SCH ×3 (09:35→13:56)
[2018-01-08 12:00] VITALS: BP 114/59
--- NOTE | 2018-01-08 12:16 | Progress Note-Hospitalist ---
Subjective HPI/CC On Admission Date Seen by Provider: Jan 08, 2018 Time Seen by Provider: 11:15 Subjective/Events-last exam Patient says she woke up this morning didn't feel very well but she's feeling better now. The neck brace is really bothering her and she wants to know how long she has to stay in it. Objective Exam Vital Signs Vital Signs Date Time Temp Pulse Resp B/P (MAP) Pulse Ox O2 Delivery O2 Flow Rate FiO2 01/05/18 12:15 98.2 91 20 140/67 (91) 96 Room Air Capillary Refill : Less Than 3 Seconds General Appearance: Other (Multiple facial contusions) Neck: Limited Range of Motion Respiratory: Rhonci Cardiovascular: Irregularly Irregular Gastrointestinal: Normal Bowel Sounds, Non Tender, Soft Assessment/Plan Assessment and Plan Assess & Plan/Chief Complaint 1. C2 cervical fracture currently stable without cord injury-and stabilizing collar 2. Multiple falls 3. Nasal fracture 4. Left arm skin tear 5. Chronic atrial fibrillation with chronic anticoagulation currently blood thinners are being held-ray does not currently well controlled on Toprol ,we'll consider consulting cardiology-rates improved today 6. Glaucoma and vision loss contributing to instability will restart her eyedrops as previously prescribed 7. Previous rib fractures with low-grade temperature-we'll check a chest x-ray because of increased rhonchi and low-grade fever 8. Mild constipation-resolved 9. Difficult social situation with increased frailty and falls at home but unable to afford assisted living Plan for discharge Tuesday Time spent with patient (mins): 20 RANDA MERCER MD Jan 08, 2018 12:16 pm
[2018-01-08] MEDS: HYDROcodone/APAP 5 MG/325 MG (LORTAB) TAB PO PRN (12:33)
[2018-01-08 12:53] LABS: HEMOGLOBIN 13.7 G/DL (11.5-16.0); MEAN PLATELET VOLUME 10.4 FL (7.4-10.4); RED BLOOD COUNT 4.22 10^6/uL (4.35-5.85); WHITE BLOOD COUNT 12.2 10^3/uL (4.3-11.0)
[2018-01-08 13:19] LABS: BUN/CREATININE RATIO 16; CALCIUM 9.7 MG/DL (8.5-10.1); CARBON DIOXIDE 25 MMOL/L (21-32); CHLORIDE 99 MMOL/L (98-107); CREATININE SERUM 0.76 MG/DL (0.60-1.30); GFR ESTIMATED > 60; GLUCOSE 112 MG/DL (70-105); POTASSIUM 4.3 MMOL/L (3.6-5.0); SODIUM 135 MMOL/L (135-145)
--- NOTE | 2018-01-08 14:14 | Diagnostic Imaging Report ---
EXAM: CHEST PA/LAT (2 VIEW) INDICATION: Rib fractures. Fever. COMPARISON: Chest radiograph 01/05/2018. FINDINGS: New left pleural effusion and consolidation in the left lung base. Exam mildly displaced left lateral rib fractures. Normal heart size and pulmonary vascularity. The right lung is clear. No pneumothorax. IMPRESSION: New small left pleural effusion and consolidation in the left lung base. Stable left lateral rib fractures. Dictated by: Dictated on workstation # [id number]
[2018-01-08 16:00] VITALS: BP 145/67
[2018-01-08] MEDS ORDERED: cefTRIAXone INJECTION 1,000 MG in NS (IVPB) 100 ML IV SCH (17:00)
[2018-01-08 20:00] VITALS: BP 115/53
[2018-01-08] MEDS: POLYETHYLENE GLYCOL 17 GM (MIRALAX) PACK PO SCH (20:39)
[2018-01-08] MEDS: ALPRAZolam 0.25 MG (XANAX) TAB PO SCH (20:41)
[2018-01-08] MEDS: LATANOPROST 0.005% (XALATAN) OPHTH SOLN 2.5 ML OU SCH (20:44)
[2018-01-09] VITALS: BP 153/72
[2018-01-09 03:28] VITALS: BP 119/57
[2018-01-09] MEDS: CATHETER FLUSH 10 ML SYR IV SCH ×2 (06:10→12:54)
[2018-01-09] MEDS: OPTH PO SCH (06:11)
[2018-01-09] MEDS: DORZOLAMIDE 2% PO SCH (06:11)
[2018-01-09] MEDS: DORZOLAMIDE 2% 10 ML BTL (TRUSOPT) OU SCH (06:14)
[2018-01-09 08:00] VITALS: BP 124/62
[2018-01-09] MEDS: amLODIPine 10 MG (NORVASC) TAB PO SCH (08:09)
[2018-01-09] MEDS: meTOprolol SUCCINATE 100 MG (TOPROL XL) TAB PO SCH (08:09)
[2018-01-09] MEDS: ARTIFICAL TEARS 0.4 ML UNIT DOSE (REFRESH PLUS) OS SCH ×2 (08:10→12:54)
[2018-01-09] MEDS ORDERED: AZITHROMYCIN INJECTION 500 MG in NS (IVPB) 250 ML IV NR (08:45)
--- NOTE | 2018-01-09 09:47 | Physical Therapy Daily Note ---
PT Daily Note-Current Subjective Patient reports she is not feeling well today. She reports incontinent BM. Pain Numeric Pain Scale: 8 Location: Left Location Body Site: Side Pain Description: Pressure, Acute Comment: rib pain from fall. RN aware Mental Status Patient Orientation: Confused Transfers Functional [place] Measure 0=Not Assessed/NA 4=Minimal Assistance 1=Total Assistance 5=Supervision or Setup 2=Maximal Assistance 6=Modified [place] 3=Moderate Assistance 7=Complete IndependenceIRFPAI Quality Coding Scale 6 Independent with activity with or without an assistive device 5 Patient requires set up or clean up by helper. Patient completes activity by themselves 4 Supervision or touching assist (CGA). [place] provide cues , steadying assist 3 The helper provides less than half the effort to complete the activity 2 The helper provides more than half the effort to complete the activity 1 Dependent. The helper does all the effort to complete an activity 7 Patient refused to complete or attempt activity 9 The patient did not perform the activity before the current illness or injury 88 Not attempted due to Medical conditions or safety concerns Transfers (B, C, W/C) (FIM): 3 Scootin Rollin Supine to/from Sit: 3 Sit to/from Stand: 5 patient requires assistance with bed mobility due to pain and weakness/patient required assistance to cleanse after BM (noted loose stools with RN notified) Weight Bearing Right Lower Extremity: Right Full Weight Bearing Left Lower Extremity: Left Full Weight Bearing Gait Training Gait (FIM): 5 Distance (FIM): 3=150 ft Distance: 150' Gait Level of Assist: 5 Gait Persons Needed: 1 Gait Assistive Device: FWW assistance due to patient decreased vision/patient does fatigue quickly with minimal activity Assessment Patient has declined with physical mobility on this date and appears confused. notified and is aware. Patient is currently not safe to return to home, from a therapy standpoint, unless patient has assistance. Patient is at a high fall risk due to blindness, pain, confusion, etc. PT Retirement Goals Physical Testing Supervisor Goals PT Physical Testing Supervisor Goals Time Frame: Jan 13, 2018 Transfers (B,C,W/C) (FIM): 5 Gait (FIM): 5 Gait distance (FIM): 3=150 ft Gait Level of Assist: 5 Gait Assistive Device: FWW PT Plan Treatment/Plan Treatment Plan: Continue Plan of Care Treatment Plan: Bed Mobility, Education, Functional Activity Terrie, Functional Strength, Gait, Safety, Therapeutic Exercise, Transfers Treatment Duration: Jan 13, 2018 Frequency: 6 times per week Estimated Hrs Per Day: .25 hour per day Patient and/or Family Agrees t: Yes Time/GCodes Time In: 916 Time Out: 939 Total Billed Treatment Time: 23 Total Billed Treatment 1 visit FA x 2 23 min PT/OT Therapy GCodes Therapy Functional Limitation: Occupational Therapy Test(s)/Tool used to determine: Level of Assistance Scale Functional Limitation-Current Charge Code: SELFCUR Modifier: CK Functional Limitation-Goal Charge Code: SELFGOAL Modifier: PARK LIM PT Jan 09, 2018 09:47
--- NOTE | 2018-01-09 12:03 | Discharge Summary ---
Diagnosis/Chief Complaint Date of Admission Jan 05, 2018 at 14:13 Date of Discharge Discharge Summary Discharge Physical Examination Allergies: Coded Allergies: isoflurane (Verified Allergy, Unknown, 04/01/16) Vitals & I&Os Vital Signs Date Time Temp Pulse Resp B/P (MAP) Pulse Ox O2 Delivery O2 Flow Rate FiO2 01/09/18 08:00 98.5 102 16 124/62 (82) 93 Room Air Discharge Instructions to patient/family Please see electronic discharge instructions given to patient. Discharge Medications Reviewed and agree with Discharge Medication list on patient's Discharge Instruction sheet Clinical Quality Measures DVT/VTE Risk/Contraindication: Risk Factor Score Per Nursin RFS Level Per Nursing on Admit: 4+=Very High Contraindications-Pharm: Other *list below* CALLIE BARON MD Jan 09, 2018 12:03
[2018-01-09] MEDS ORDERED: AZIT250T12 PO (12:05)
[2018-01-09] MEDS ORDERED: CEFD300C3 PO (12:05)
--- NOTE | 2018-01-09 12:07 | D/C HH Face to Face Order ---
D/C Face to Face Orders Instructions for Patient Patient Instructions/FollowUp: follow up in 1 week at [facility] Physician to follow Patient: fernanda Discharge Diet for Home: Regular Diet Patient Data-Allergies,Ht & Wt Patient Allergies: Coded Allergies: isoflurane (Verified Allergy, Unknown, 04/01/16) Height (Feet): 5 Height (Inches): 2.00 Weight (Pounds): 120 Weight (Ounces): 0.0 Home Health Need/Face to Face Date of Face to Face: Jan 09, 2018 Clinical Findings: Generalized weakness and fatigue, Muscle weakness, Unsteady gait I have seen Pt [id number]: Yes Discharged To: Home Diagnosis/Conditions: c2 fracture falling episodes afib blindness Problems/Diagnosis/Condition: Patient is Homebound due to: [place] fall risk due to instabilty, Muscle weakness Homebound Status Due to the above stated illness, injury or surgical procedure (medical condition or diagnosis) and associated clinical findings, the patient is homebound because of his/her inability to leave home except with aid of a supportive device and/or person AND leaving the home requires a considerable and taxing effort or is medically contraindicated. Pt req the following assistanc: [facility] Nursing Orders Home Health Services Order: Nursing Services, Physical Therapy-Evaluate & Treat Home Health Infusion Therapy Line Type: Peripheral IV Site Location: Antecubital Certify Stmt I certify that this patient is under my care and that I, a nurse practitioner or a physician; a assistant track and field coach working with me, had a face to face encounter that - meets the physician face to face encounter requirements with this patient as dated. CALLIE BARON MD Jan 09, 2018 12:07
--- NOTE | 2018-01-09 15:45 | Occupational Ther Daily Note ---
OT Current Status-Daily Note Subjective Pt seen in room, up in recliner, anticipating discharge to home. Clinical Trial Coordinator is there. pt agreeable to OT. Mental Status/Objective Functional [place] Measure 0=Not Assessed/NA 4=Minimal Assistance 1=Total Assistance 5=Supervision or Setup 2=Maximal Assistance 6=Modified [place] 3=Moderate Assistance 7=Complete [place] ADL-Treatment Skilled cues for hand placement for getting up and down from recliner (to not pull up with walker). Pt walked CGA, FWW to bathroom. CGA getting on and off toilet, with skilled cues for hand placement on grab bar. Pt was able to pull pants down and up and wipe herself, with SBA. Pt stood to put shirt on - was a little wobbly, with SBA. Pt educ to sit to dress, for safety. Pt needed min assist to get pants on over feet. Pt walked CGA, FWW to recliner and needed recovery period before putting on slippers. OT discussed with Kiesha QUEEN about discharge to home - Kiesha said that paid caregivers are at the home, waiting for her, as well as gambling box person for [facility], and will assess safety at home. Pt verbalized possibility of moving to [facility] with at some time. pt left up in recliner, all needs met. Education OT Patient Education: Modified ADL techniques, Purpose of tx/functional activities, Safety issues, Transfer techniques Teaching Recipient: Patient Teaching Methods: Demonstration, Discussion Response to Teaching: Verbalize Understanding, Return Demonstration, Reinforcement Needed OT Short Term Goals Short Term Goals 1=Demonstrate adherence to instructed precautions during ADL tasks. 2=Patient will verbalize/demonstrate understanding of assistive devices/ modifications for ADL. 3=Patient will improve strength/tolerance for activity to enable patient to perform ADL's. OT Account Executive Trainee Goals Shelter Goals Time Frame: Jan 13, 2018 Grooming(FIM): 5 Bathing(FIM): 5 Upper Body Dressing(FIM): 5 Lower Body Dressing(FIM): 5 Toilet/Commode Transfer(FIM): 5 Additional Goals: 1-Demonstrate ADL Tasks, 2-Verbalize Understanding, 3- ImproveStrength/Terrie 1=Demonstrate adherence to instructed precautions during ADL tasks. 2=Patient will verbalize/demonstrate understanding of assistive devices/ modifications for ADL. 3=Patient will improve strength/tolerance for activity to enable patient to perform ADL's. OT Education/Plan Problem List/Assessment Pt admitted with C2 fracture following fall at home. Pt demonstrates decreased mobility and ADL functioning. Pt has impaired vision and requires cues during functional tasks. Pt to benefit from skilled OT intervention for ADL training, transfers, and strengthening to increase level of independence and allow safe discharge. Discharge Recommendations Plan/Recommendations: Discharge/Goals Met (no goals were met) Treatment Plan/Plan of Care Patient would benefit from OT for education, treatment and training to promote independence in ADL's, mobility, safety and/or upper extremity function for ADL' s. Plan of Care: ADL Retraining, Functional Mobility, UE Funct Exercise/Act Treatment Duration: Jan 13, 2018 Frequency: 5 times per week Estimated Hrs Per Day: .25 hour per day Agreement: Yes Rehab Potential: Fair Time/GCodes Start Time: 15:00 Stop Time: 15:20 Total Time Billed (hr/min): 20 Billed Treatment Time visit, 20 minutes ADL PT/OT Therapy GCodes Therapy Functional Limitation: Occupational Therapy Test(s)/Tool used to determine: FIM, Level of Assistance Scale Functional Limitation-Current Charge Code: SELFCUR Modifier: HARISH Functional Limitation-Goal Charge Code: SELFGOAL Modifier: CJ Functional Limitation-D/C Charge Codes: SELFDC Modifier: VILMA GREENFIELD OT Jan 09, 2018 15:45
--- NOTE | 2018-01-10 08:04 | Physical Therapy Daily Note ---
PT Daily Note-Current Transfers Functional [place] Measure 0=Not Assessed/NA 4=Minimal Assistance 1=Total Assistance 5=Supervision or Setup 2=Maximal Assistance 6=Modified [place] 3=Moderate Assistance 7=Complete IndependenceIRFPAI Quality Coding Scale 6 Independent with activity with or without an assistive device 5 Patient requires set up or clean up by helper. Patient completes activity by themselves 4 Supervision or touching assist (CGA). [place] provide cues , steadying assist 3 The helper provides less than half the effort to complete the activity 2 The helper provides more than half the effort to complete the activity 1 Dependent. The helper does all the effort to complete an activity 7 Patient refused to complete or attempt activity 9 The patient did not perform the activity before the current illness or injury 88 Not attempted due to Medical conditions or safety concerns Weight Bearing Right Lower Extremity: Right Full Weight Bearing Left Lower Extremity: Left Full Weight Bearing PT Inventory Accountant Goals Inventory Accountant Goals PT Fpc Goals Time Frame: Jan 13, 2018 Transfers (B,C,W/C) (FIM): 5 Gait (FIM): 5 Gait distance (FIM): 3=150 ft Gait Level of Assist: 5 Gait Assistive Device: FWW PT Plan Treatment/Plan Treatment Plan: Discontinue PT Treatment Plan: Bed Mobility, Education, Functional Activity Terrie, Functional Strength, Gait, Safety, Therapeutic Exercise, Transfers Treatment Duration: Jan 13, 2018 Frequency: 6 times per week Estimated Hrs Per Day: .25 hour per day Patient and/or Family Agrees t: Yes Time/GCodes Time In: 800 Time Out: 801 Total Billed Treatment Time: 1 Total Billed Treatment DC PT/OT Therapy GCodes Therapy Functional Limitation: Physical Therapy Test(s)/Tool used to determine: FIM, Level of Assistance Scale Functional Limitation-Current Charge Code: MOBCUR Modifier: CL Functional Limitation-Goal Charge Code: MOBGOAL Modifier: CJ Functional Limitation-D/C Charge Codes: MOBDC Modifier: CL PARK SHANE PT Jan 10, 2018 08:04
[2018-01-10] MEDS ORDERED: AZITHROMYCIN 250 MG TAB (ZITHROMAX) PO SCH (09:00)
--- NOTE | 2018-01-11 08:22 | Physician Query Clarification ---
PQ-Intro New Diagnosis Admission/Discharge Admission Date: Jan 05, 2018 at 15:30 Discharge Date: Jan 09, 2018 at 12:04 The medical record reflects the following clinical scenario: History/Risk Factors: Per progress note from Dr Nicolas on 01/08/18 Clinical Findings: new infiltrate, fever, increased WBC Treatment: Ceftraxone IV Question: What condition best reflects the above clinical scenario? PHYSICIAN RESPONSE What condition reflects above: Other, explanation/clinical finding Explanation of clincal finding BRONCHITIS In responding to this query, please exercise your independent professional judgment. The purpose of this communication is to more accurately reflect the complexity of your patients condition. The fact that a question is asked does not imply that any particular answer is desired or expected. Thank you for your timely response to this clarification. Requestors name: Thao Mason THIS PHYSICIAN QUERY FORM IS A PERMANENT PART OF THE MEDICAL RECORD YIN MASON Jan 11, 2018 08:22 CALLIE BARON MD Jan 11, 2018 20:10
== END 2018-01-09 12:04 | disposition home health service (06) ==
LOC: EDUNIT# 12:11 → ER 12:13 → 4TH 14:13 → UNDOADMOB 14:13 → 4TH 15:30
PROVIDERS: ADMIT Family Medicine; ATTEND Family Medicine
DX: S12.112A Nondisplaced Type II dens fracture, initial encounter for closed fracture (principal); S02.2XXA Fracture of nasal bones, initial encounter for closed fracture; S00.03XA Contusion of scalp, initial encounter; S51.802A Unspecified open wound of left forearm, initial encounter; J40 Bronchitis, not specified as acute or chronic; R07.81 Pleurodynia; R42 Dizziness and giddiness; I48.2 Chronic atrial fibrillation; I25.10 Atherosclerotic heart disease of native coronary artery without angina pectoris; I10 Essential (primary) hypertension; H40.9 Unspecified glaucoma; H54.3 Unqualified visual loss, both eyes; K59.00 Constipation, unspecified; W18.09XA Striking against other object with subsequent fall, initial encounter; Y92.010 Kitchen of single-family (private) house as the place of occurrence of the external cause; Z79.01 Long term (current) use of anticoagulants
CPT/HCPCS: 36415; 70450; 70486; 71046; 71101; 72125; 80048; 85027; 94664; G0378

== ENCOUNTER → 2018-02-07 | Outpatient (CLI) | payer MEDICARE ==
[~2018-02-07] MED LIST changes: +AZIT250T12 PO; +CEFD300C3 PO
--- NOTE | 2018-02-07 16:28 | Diagnostic Imaging Report ---
INDICATION: C2 fracture, followup. TIME OF EXAMINATION: 3:00 PM. COMPARISON: Correlation is made with a CT of the cervical spine from 01/05/2018. FINDINGS: There is an obliquely oriented lucency in the region of the base of the odontoid on the lateral view, suggestive of the known C2 fracture. There appears to be slightly greater posterior displacement of the odontoid in relation to the body of C2 when compared with the CT. The displacement is approximately 3 mm. This could be better characterized with CT. The alignment of the remainder of the cervical spine appears normal. Diffuse demineralization is present. There is multilevel facet and degenerative disc disease. The prevertebral tissues are normal. IMPRESSION: C2 fracture with apparent slight increase in the degree of posterior displacement of the odontoid in relation to the body of C2 when compared with the CT study from 01/05/2018. A CT of the cervical spine could be performed for better characterization, if clinically indicated. Dictated by: Dictated on workstation # [id number]
--- NOTE | 2018-02-07 16:29 | Diagnostic Imaging Report ---
INDICATION: Nasal bone fracture. This study is performed for followup. TIME OF EXAMINATION: 3:07 PM. FINDINGS: There is some irregularity involving the lower portions of the nasal bones bilaterally, most likely owing to healing nasal bone fractures. No displaced nasal bone fracture is seen. The nasal spine appears to be intact. IMPRESSION: Findings suggestive of healing nasal bone fractures, nondisplaced. Dictated by: Dictated on workstation # [id number]
== END ==
LOC: RAD 14:07
PROVIDERS: ATTEND Nurse Practitioner Family
DX: S02.2XXA Fracture of nasal bones, initial encounter for closed fracture (principal); S12.100A Unspecified displaced fracture of second cervical vertebra, initial encounter for closed fracture
CPT/HCPCS: 70160; 72040

== ENCOUNTER → 2018-03-02 | Outpatient (CLI) | payer MEDICARE ==
[~2018-03-02] MED LIST changes: +DORZ10DR18 OU; -DORZ10DR2 OU
--- NOTE | 2018-03-02 09:33 | Diagnostic Imaging Report ---
INDICATION: Fracture. COMPARISON: No prior studies are available for comparison. EXAMINATION: Bone mineral analysis of the lumbar spine and both hips was performed. FINDINGS: The bone mineral density of the lumbar spine L2 through L4 is 0.739 with a T score of -3.8. The bone mineral density of the left femoral neck is 0.592 with T score of -3.2. The bone mineral density of the right femoral neck is 0.619 with a T score of -3.0. 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 Dictated by: Dictated on workstation # [id number]
== END ==
LOC: RAD 08:31
PROVIDERS: ATTEND Nurse Practitioner Family
DX: S12.100A Unspecified displaced fracture of second cervical vertebra, initial encounter for closed fracture (principal)
CPT/HCPCS: 77080

== ENCOUNTER → 2018-04-04 | Outpatient (CLI) | payer MEDICARE ==
--- NOTE | 2018-04-04 15:34 | Diagnostic Imaging Report ---
INDICATION: Cervical fracture followup. AP and lateral views of the cervical spine were obtained. FINDINGS: The odontoid is in good alignment. There is no visible fracture on today's image. The posterior elements are intact. There is degenerative disc change at C5-C6. Other discs appeared normal. IMPRESSION: Degenerative disc changes at C5-C6. There is no appreciable fracture seen on today's exam. Dictated by: Dictated on workstation # [id number]
== END ==
LOC: RAD 13:58
PROVIDERS: ATTEND Nurse Practitioner Family
DX: Z09 Encounter for follow-up examination after completed treatment for conditions other than malignant neoplasm (principal); M50.322 Other cervical disc degeneration at C5-C6 level; Z87.81 Personal history of (healed) traumatic fracture
CPT/HCPCS: 72040

== ENCOUNTER → 2018-05-31 | Outpatient (CLI) | payer MEDICARE ==
[~2018-05-31] MED LIST changes: +BARIUM SUSPENSION 105% (LIQUID POLIBAR PLUS) 240 ML/DOSE PO ONE; +BARIUM SUSPENSION 60% (LIQUID EZ PAQUE) 240 ML DOSE PO ONE
--- NOTE | 2018-05-31 12:56 | Diagnostic Imaging Report ---
INDICATION: Dysphagia. Patient ingested effervescent crystals as well as thin and thick barium and imaging of the esophagus was performed. The esophagus has a fairly smooth contour. No esophageal mass or stricture is identified. No hiatal hernia or gastroesophageal reflux was demonstrated. Occasional tertiary contractions are seen. IMPRESSION: Mild esophageal dysmotility. Study is otherwise unremarkable. Dictated by: Dictated on workstation # [id number]
== END ==
LOC: RAD 08:29
PROVIDERS: ATTEND Nurse Practitioner Family
DX: K22.4 Dyskinesia of esophagus (principal)
CPT/HCPCS: 74220